=== PATIENT | female | born 1965 | race Caucasian/White ===

== ENCOUNTER 2020-01-25 16:05 | Emergency (ER) | payer MEDICARE, OTHER ==
--- NOTE | 2020-01-25 16:16 | ERPHSYRPT ---
- History of Present Illness Time Seen by Provider: 01/25/20 16:15 Source: patient Exam Limitations: no limitations Physician History: For the past 6 days pt has had a cough productive of smxqbe-ilvqd-[id number]-white- clear phlegm with an intermittent frontal headache; for the past 5 days a sore throat and ears that feel clogged; for the past 4 days wheezing; for the past 2 days hoarseness. Allergies/Adverse Reactions: amoxicillin [From Augmentin] Allergy (Verified 01/25/20 16:25) atorvastatin [From Lipitor] Allergy (Verified 01/25/20 16:25) ciprofloxacin [From Cipro] Allergy (Verified 01/25/20 16:25) clavulanic acid [From Augmentin] Allergy (Verified 01/25/20 16:25) cortisone Allergy (Verified 01/25/20 16:25) rosuvastatin [From Crestor] Allergy (Verified 01/25/20 16:25) Sulfa (Sulfonamide Antibiotics) Allergy (Verified 01/25/20 16:25) Tetanus Vaccines and Toxoid Allergy (Verified 01/25/20 16:25) ibuprofen Adverse Reaction (Verified 01/25/20 16:25) Travel Risk - International Travel Have you traveled outside of the country in past 3 weeks: No Have you or anyone close to you been diagnosed with or: No Do your reside in a community with a known COVID-19 case?: Yes If Yes where:: [place] - Coronavirus Screening Has patient experienced Coronavirus symptoms: Yes Symptoms experienced: respiratory symptoms (i.e.Cought,shortness of breath) Date of respiratory symptoms onset:: 01/19/20 (cough) - Review of Systems Constitutional: No Fever Ears, Nose, & Throat: Throat Pain, Hoarse, Other (ears clogged ) Respiratory: Cough, Wheezing Neurological: Headache All Other Systems: Reviewed and Negative - Past Medical History Neurological History: Peripheral Neuropathy, Other Cardiac History: No Pertinent History Respiratory History: Bronchitis Endocrine Medical History: No Pertinent History Musculoskeletal History: Degenerative Disk Disease, Fibromyalgia, Osteoarthritis Other Medical History: Carpal tunnel in the R UE and L UE but worse in the L. Psoriatic OA, Degenerative OA - Nursing Vital Signs Nursing Vital Signs: Initial Vital Signs Temperature 97.6 F 01/25/20 16:13 Pulse Rate 78 01/25/20 16:13 Respiratory Rate 18 01/25/20 16:13 O2 Sat by Pulse Oximetry 93 L 01/25/20 16:13 Pain Scale Pain Intensity 0 - Physical Exam General Appearance: alert Eye Exam: PERRL/EOMI Ears, Nose, Throat Exam: TMs normal, moist mucous membranes, pharyngeal erythema (mild) Neck Exam: normal inspection Respiratory Exam: wheezing (mild expiratory wheezing over bases bilaterally.) Cardiovascular Exam: normal heart sounds Gastrointestinal/Abdomen Exam: soft, normal bowel sounds Back Exam: normal range of motion Extremity Exam: No pedal edema Neurologic Exam: alert, cooperative Skin Exam: warm, dry SpO2 Interpretation: normal SpO2: 93 O2 Delivery: Room Air - Course Nursing assessment & vital signs reviewed: Yes - Radiology Exams Chest X-ray Interpretation: Interpreted by me (no pneumonia) Ordered Tests: Active Orders 24 hr Category Date Time Status CHEST 2 VIEWS (PA AND LAT) Stat Exams 01/25/20 16:26 Taken CBC W DIFF Stat Lab 01/25/20 16:45 Completed CMP Stat Lab 01/25/20 16:45 Completed Respiratory Nebulizer STAT RT 01/25/20 16:57 Completed Respiratory Therapy Assessment DAILY RT 01/25/20 16:57 Active Medication Summary Discontinued Medications Generic Name Dose Route Start Last Admin Trade Name Freq PRN Reason Stop Dose Admin Albuterol Sulfate 2.5 mg 01/25/20 16:42 01/25/20 16:56 Proventil 2.5 Mg/3 Ml Neb IH 01/25/20 16:43 2.5 mg STAT ONE Administration Albuterol Sulfate Confirm 01/25/20 16:50 Proventil 2.5 Mg/3 Ml Neb Administered 01/25/20 16:51 Dose 2.5 mg IH .STK-MED ONE Ceftriaxone Sodium 1,000 mg 01/25/20 17:49 01/25/20 17:57 Rocephin 1000 Mg Inj IM 01/25/20 17:50 1,000 mg STAT ONE Administration Dexamethasone Sodium Phosphate 10 mg 01/25/20 17:48 01/25/20 17:57 Decadron 10mg Inj. IM 01/25/20 17:49 10 mg STAT ONE Administration Lab/Rad Data: Laboratory Result Diagrams 01/25/20 16:45 01/25/20 16:45 Laboratory Results 01/25/20 01/25/20 01/25/20 Range/Units 16:45 16:45 16:45 WBC 8.1 (4.0-10.5) K/mm3 RBC 5.12 (4.1-5.4) M/mm3 Hgb 14.1 (12.0-16.0) gm/dl Hct 42.8 (35-47) % MCV 83.6 (78-100) fl MCH 27.5 (26-32) pg MCHC 32.9 (32-36) g/dl RDW 16.9 H (11.5-14.0) % Plt Count 229 (150-450) K/mm3 MPV 9.2 (7.5-11.0) fl Gran % 47.3 (36.0-66.0) % Eos # (Auto) 0.20 (0-0.5) Absolute Lymphs (auto) 3.45 (1.0-4.6) Absolute Monos (auto) 0.59 (0.0-1.3) Lymphocytes % 42.8 (24.0-44.0) % Monocytes % 7.3 (0.0-12.0) % Eosinophils % 2.5 (0.00-5.0) % Basophils % 0.1 (0.0-0.4) % Absolute Granulocytes 3.82 (1.4-6.9) Basophils # 0.01 (0-0.4) Sodium 141 (137-145) mmol/L Potassium 3.6 (3.5-5.1) mmol/L Chloride 107 (98-107) mmol/L Carbon Dioxide 28 (22-30) mmol/L Anion Gap 9.8 (5-15) MEQ/L BUN 11 (7-17) mg/dL Creatinine 0.56 (0.52-1.04) mg/dL Estimated GFR > 60.0 ML/MIN Glucose 92 (74-106) mg/dL Calcium 9.3 (8.4-10.2) mg/dL Total Bilirubin 0.60 (0.2-1.3) mg/dL AST 26 (14-36) U/L ALT 26 (0-35) U/L Alkaline Phosphatase 99 (38-126) U/L Serum Total Protein 7.1 (6.3-8.2) g/dL Albumin 4.1 (3.5-5.0) g/dL Influenza Type A Ag NEGATIVE (NEGATIVE) Influenza Type B Ag NEGATIVE (NEGATIVE) RSV (PCR) NEGATIVE (Negative) Group A Strep Antibody NOT DETECTED (NEGATIVE) - Progress Progress: unchanged Progress Note: 01/25/20 17:47 pt states she has taken decadron shots before without problems. pt also states she has taken keflex before without problems. Antibiotics given: Yes Counseled pt/family regarding: lab results, rad results - Departure Departure Disposition: Home Clinical Impression: Bronchitis, Pharyngitis Condition: Stable Critical Care Time: No Referrals: ALEX MOORE MD [Primary Care Provider] - Instructions: Acute Bronchitis, Sore Throat, Adult (DC) Additional Instructions: Follow up with private doctor tomorrow. Prescriptions: Azithromycin 250 mg [Zithromax 250 MG TABLET] 250 mg PO ZPACK #6 tablet Benzonatate [Tessalon Perle] 200 mg PO TID PRN #30 capsule
[2020-01-25] MEDS ORDERED: PROVENTIL 2.5 MG/3 ML NEB IH ONE ×2 (16:42→16:50)
[2020-01-25 16:50] LABS: Absolute Neutrophil Ct (ANC) 3.82 (1.4-6.9); BASOPHIL % 0.1 % (0.0-0.4); Basophil (Absolute #) 0.01 (0-0.4); Eosinophil % 2.5 % (0.00-5.0); Hematocrit 42.8 % (35-47); Hemoglobin 14.1 gm/dl (12.0-16.0); Lymphocyte (Absolute #) 3.45 (1.0-4.6); Lymphocytes % 42.8 % (24.0-44.0); Mean Cell Volume 83.6 fl (78-100); Mean Corpuscular Hemoglobin 27.5 pg (26-32); Mean Corpuscular Hgb Concent. 32.9 g/dl (32-36); Mean Platelet Volume 9.2 fl (7.5-11.0); Monocyte (Absolute #) 0.59 (0.0-1.3); Monocytes % 7.3 % (0.0-12.0); Neutrophil % 47.3 % (36.0-66.0); Platelet Count 229 K/mm3 (150-450); Red Blood Count 5.12 M/mm3 (4.1-5.4); Red Cell Distribution Width 16.9 % (11.5-14.0); White Blood Count 8.1 K/mm3 (4.0-10.5)
[2020-01-25 17:09] LABS: ALBUMIN 4.1 g/dL (3.5-5.0); ALKALINE PHOSPHATASE 99 U/L (38-126); ANION GAP 9.8 MEQ/L (5-15); BLOOD UREA NITROGEN 11 mg/dL (7-17); CHLORIDE 107 mmol/L (98-107); Calcium 9.3 mg/dL (8.4-10.2); Carbon Dioxide 28 mmol/L (22-30); Creatinine 1 0.56 mg/dL (0.52-1.04); Glucose 92 mg/dL (74-106); Potassium 3.6 mmol/L (3.5-5.1); SGOT/AST 26 U/L (14-36); SGPT/ALT 26 U/L (0-35); SODIUM 141 mmol/L (137-145); Total Protein 7.1 g/dL (6.3-8.2)
[2020-01-25 17:19] LABS: INFLUENZA A NEGATIVE (NEGATIVE); INFLUENZA B NEGATIVE (NEGATIVE); RESPIRATORY SYNCTIAL VIRUS NEGATIVE (Negative)
[2020-01-25] MEDS ORDERED: DECADRON 10MG INJ. IM ONE (17:48)
[2020-01-25] MEDS ORDERED: Rocephin 1000 MG INJ IM ONE (17:49)
[2020-01-25] MEDS ORDERED: Rocephin 1000 MG INJ ONE (17:56)
[2020-01-25] MEDS ORDERED: DECADRON 10MG INJ. ONE (17:56)
[2020-01-25] MEDS ORDERED: XYLOCAINE 1% HCL 20 ML MDV ONE (17:56)
[2020-01-25 18:06] VITALS: BP 140/81; PULSE 89
[2020-01-25 18:08] VITALS: O2SAT 93
--- NOTE | 2020-01-26 08:50 | XRAY ---
Indication: Cough. Comparison: June 20, 2008. PA/lateral chest hyperinflated with chronic lung markings. No focal infiltrate, consolidation, or large effusion. Heart and mediastinal structures within normal limits. Bony thorax intact with mild degenerative changes. Impression: Nonacute chest with chronic features.
== END 2020-01-25 18:13 | disposition home or self-care (01) ==
LOC: ED 16:05
DX: J40 Bronchitis, not specified as acute or chronic (principal); J02.9 Acute pharyngitis, unspecified; R51 Headache; R49.0 Dysphonia; R05 Cough; R06.2 Wheezing; R06.02 Shortness of breath
CPT/HCPCS: 36415; 71046; 80053; 85025; 87631; 87651; 94640; 96372; 99284; J0696; J1100; J7609; A9270-GY

== ENCOUNTER 2020-11-01 13:34 | Emergency (ER) | payer MEDICARE, OTHER ==
[2020-11-01 13:49] VITALS: O2SAT 96
[2020-11-01] MEDS ORDERED: TORAdol 30 mg Injection IM ONE (13:49)
[2020-11-01] MEDS ORDERED: Decadron 4 MG INJ IM ONE (13:49)
[2020-11-01] MEDS ORDERED: Decadron 4 MG INJ ONE (14:01)
[2020-11-01] MEDS ORDERED: TORAdol 30 mg Injection ONE (14:01)
--- NOTE | 2020-11-01 14:17 | ERPHSYRPT ---
- History of Present Illness Time Seen by Provider: 11/01/20 14:13 Source: patient Exam Limitations: no limitations Patient Subjective Stated Complaint: back pain Triage Nursing Assessment: Patient brought back to ED via w/c and transferred self to bed. Patient A+O X3. Patient's skin pink, warm and dry. Patient complains of right sided back pain that goes down right leg constant, sharp pain 10/10. Patient denies injuring self. No visible injuries noted. Patient states the pain started one week ago. Physician History: Complaining of low back pain radiating to the right leg. Patient is 55-year-old female morbidly obese with history of osteoarthritis on lumbosacral spine started having a pain in her lower back on the right side radiating to the right lower extremity. Patient denies any bowel bladder disturbance. Patient has this problem off and on for long years. Patient denies any fall. Timing/Duration: week(s) Method of Injury: unknown Quality: dull Back Pain Location: lumbar spine Back Pain Radiation: lower legs Severity of Pain-Max: moderate Severity of Pain-Current: moderate Modifying Factors: Improves With: nothing Associated Symptoms: denies symptoms Allergies/Adverse Reactions: amoxicillin [From Augmentin] Allergy (Verified 11/01/20 13:43) atorvastatin [From Lipitor] Allergy (Verified 11/01/20 13:43) ciprofloxacin [From Cipro] Allergy (Verified 11/01/20 13:43) clavulanic acid [From Augmentin] Allergy (Verified 11/01/20 13:43) cortisone Allergy (Verified 11/01/20 13:43) rosuvastatin [From Crestor] Allergy (Verified 11/01/20 13:43) Sulfa (Sulfonamide Antibiotics) Allergy (Verified 11/01/20 13:43) Tetanus Vaccines and Toxoid Allergy (Verified 11/01/20 13:43) ibuprofen Adverse Reaction (Verified 11/01/20 13:43) Hx Influenza Vaccination/Date Given: Yes Hx Pneumococcal Vaccination/Date Given: No Immunizations Up to Date: Yes Travel Risk - International Travel Have you traveled outside of the country in past 3 weeks: No - Coronavirus Screening Are you exhibiting any of the following symptoms?: No Close contact with a COVID-19 positive Pt in past 14-21 Days: No - Review of Systems Constitutional: No Symptoms Eyes: No Symptoms Ears, Nose, & Throat: No Symptoms Respiratory: No Symptoms Cardiac: No Symptoms Abdominal/Gastrointestinal: No Symptoms Genitourinary Symptoms: No Symptoms Musculoskeletal: Back Pain - Past Medical History Pertinent Past Medical History: Yes Neurological History: Peripheral Neuropathy, Other ENT History: No Pertinent History Cardiac History: No Pertinent History Respiratory History: Bronchitis Endocrine Medical History: No Pertinent History Musculoskeletal History: Degenerative Disk Disease, Fibromyalgia, Osteoarthritis GI Medical History: No Pertinent History History: No Pertinent History Psycho-Social History: No Pertinent History Female Reproductive Disorders: No Pertinent History Other Medical History: Carpal tunnel in the R UE and L UE but worse in the L. Psoriatic OA, Degenerative OA - Past Surgical History Past Surgical History: Yes Neuro Surgical History: No Pertinent History Cardiac: No Pertinent History Respiratory: No Pertinent History Gastrointestinal: No Pertinent History Genitourinary: No Pertinent History Musculoskeletal: Orthopedic Surgery Female Surgical History: Tubal Ligation Other Surgical History: Right shoulder X 2, Nasal surgery X 8 - Social History Smoking Status: Current every day smoker How long have you smoked: years Exposure to second hand smoke: Yes Drug Use: none Patient Lives Alone: No - Female History Hx Now: No - Nursing Vital Signs Nursing Vital Signs: Initial Vital Signs Temperature 98.0 F 11/01/20 13:44 Pulse Rate 89 11/01/20 13:44 Respiratory Rate 18 11/01/20 13:44 Blood Pressure 178/107 11/01/20 13:44 O2 Sat by Pulse Oximetry 96 11/01/20 13:44 Pain Scale Pain Intensity 10 - Physical Exam General Appearance: no apparent distress Eye Exam: PERRL/EOMI Ears, Nose, Throat Exam: normal ENT inspection Neck Exam: normal inspection Respiratory Exam: normal breath sounds Cardiovascular Exam: regular rate/rhythm Gastrointestinal Exam: soft Pelvic Exam: not done Rectal Exam: deferred Back Exam: decreased range of motion, muscle spasm, No CVA tenderness, No vert ebral tenderness, No point tenderness Extremity Exam: normal inspection, pelvis stable Neurologic Exam: alert, oriented x 3, cooperative, nml station & gait Skin Exam: normal color Lymphatic Exam: No adenopathy SpO2 Interpretation: normal SpO2: 96 O2 Delivery: Room Air - Course Nursing assessment & vital signs reviewed: Yes - Radiology Exams L-Spine X-ray Interpretation: Reviewed by me (osteoarthritis changes), Negative Ordered Tests: Active Orders 24 hr Category Date Time Status LUMBAR LIMITED (2 OR 3 VIEWS) Stat Exams 11/01/20 13:49 Taken Medication Summary Discontinued Medications Generic Name Dose Route Start Last Admin Trade Name Chelsey PRN Reason Stop Dose Admin Dexamethasone Sodium Phosphate 4 mg 11/01/20 13:49 11/01/20 14:02 Decadron 4 Mg Inj IM 11/01/20 13:50 4 mg STAT ONE Administration Dexamethasone Sodium Phosphate Confirm 11/01/20 14:01 Decadron 4 Mg Inj Administered 11/01/20 14:02 Dose 4 mg .ROUTE .STK-MED ONE Ketorolac Tromethamine 60 mg 11/01/20 13:49 11/01/20 14:03 Toradol 30 Mg Injection IM 11/01/20 13:50 60 mg STAT ONE Administration Ketorolac Tromethamine Confirm 11/01/20 14:01 Toradol 30 Mg Injection Administered 11/01/20 14:02 Dose 60 mg .ROUTE .STK-MED ONE - Progress Progress: improved, pain not gone completely Counseled pt/family regarding: diagnosis, need for follow-up, rad results - Departure Departure Disposition: Home Clinical Impression: Right-sided low back pain with sciatica Qualifiers: Chronicity: chronic Sciatica laterality: sciatica of right side Qualified Code(s): M54.41 - Lumbago with sciatica, right side; G89.29 - Other chronic pain Condition: Stable Critical Care Time: No Referrals: JUSTYN TERRELL Jr., MD [Primary Care Provider] - Instructions: Low Back Pain (DC), Sciatica (DC) Additional Instructions: Discharge/Care Plan [email or web address] EBONI was seen on 11/01/20 in the Emergency Room. The patient was counseled regarding Diagnosis,Lab results, Imaging studies, need for follow up and when to return to the Emergency Room. Prescriptions given: Discharge Note I have spoken with the patient and/or caregivers. I have explained the patient's condition, diagnosis and treatment plan based on the information available to me at this time. I have answered the patient's and/or caregiver's questions and addressed any concerns. The patient and/or caregivers have as good understanding of the patient's diagnosis, condition and treatment plan as can be expected at this point. The vital signs have been stable. The patient's condition is stable and appropriate for discharge from the emergency department. The patient will pursue further outpatient evaluation with the primary care physician or other designated or consulting physician as outlined in the discharge instructions. The patient and/or caregivers are agreeable to this plan of care and follow-up instructions have been explained in detail. The patient and/or caregivers have received these instruction. The patient/and or caregivers are aware that any significant change in condition or worsening of symptoms should prompt an immediate return to this or the closest emergency department or call 911. CHERYL SEGURA was seen on 11/01/20 n the Emergency Room. At that time you were treated for an emergent condition, during your visit Laboratory, Radiology and/or other procedures may have been ordered. It is very important that you follow-up with your Primary Care Physician JUSTYN TERRELL Jr., MD within the next 24-48 hours to review your Emergency Room visit and the final results of testing that was ordered. Some test results such as Urine Cultures, Blood Cultures, and other cultures if ordered will not be finalized for 24-48 hours. If you do not have a Primary Care Provider please call the medical records department at [phone] ext [phone] to obtain a copy of your results or you may sign into our patient portal to obtain these results by visiting us @ [email or web address] and completing the following steps: 1. Click on the Patient Portal link 2. Click the Patient Self Enrollment Link to complete the enrollment form and entering your 3. Once the enrollment form is completed you will receive an email with a temporary ID and password at the email address you provided. 4. Next choose a user name and password. Your user name must be at least 4 characters long and your password must be at least 4 characters long. 5. Choose a security question from the list and provide your answer to the question. If you already have signed into the Health Portal you may access your Health Care Information 24/05 by the following steps: 1. Login to our website @ [email or web address] 2. Enter your original user name and password. FAQS The [facility] Portal is an online tool that contains your Lab Results, Radiology Reports, Visit History, Discharge Instructions and Health Summary Lab and Radiology Results will not be available for 72 hours on the portal. The Portal is a secure site, passwords are encryted and URLs are re-written so they cannot be copied and pasted. You and authorized family members are the only ones who can access your Portal. Also there is a timeout feature that protects your information if you leave the Portal page open. If you have technical difficulty please use the Contact Us link on the page this will allow you to submit any questions you have regarding the Portal or you may contact the Medical Record Department at [phone] ext [phone]. Prescriptions: Nabumetone [Relafen] 500 mg PO BID #20 tablet
[2020-11-01 14:27] VITALS: BP 167/90; PULSE 78
--- NOTE | 2020-11-01 18:06 | XRAY ---
Indication: Low back pain. Right sciatica. Comparison: None 3 view lumbar spine demonstrates 5 lumbar segments with minimal/mild multilevel thoracolumbar endplate spurring, moderate bilateral L4-S1 degenerative facet hypertrophy, and scattered aortic calcifications. No other bony, articular, or soft tissue abnormalities.
== END 2020-11-01 14:48 | disposition home or self-care (01) ==
LOC: ED 13:34
DX: M54.41 Lumbago with sciatica, right side (principal); G89.29 Other chronic pain; M51.37 Other intervertebral disc degeneration, lumbosacral region; M19.90 Unspecified osteoarthritis, unspecified site
CPT/HCPCS: 72100; 96372; 99284; J1100; J1885

== ENCOUNTER 2021-03-26 14:56 | Day surgery (SDC) | payer OTHER ==
[2021-03-26] MEDS ORDERED: Xylocaine 1% Vial 30 ML PF IJ ONE (14:57)
[2021-03-26] MEDS ORDERED: Depo-Medrol 40 MG/ML IM ONE (14:57)
[2021-03-26] MEDS ORDERED: BUPIVACAINE 0.5% VIAL IJ ONE (14:57)
--- NOTE | 2021-03-26 17:49 | XRAY ---
21 seconds of fluoroscopy was used in surgery for a right SI injection.
--- NOTE | 2021-03-26 17:49 | XRAY ---
Indication: Right SI joint injection. Intraoperative fluoroscopy provided for 21 seconds. 2 digital spot images submitted for interpretation demonstrates posterior needle tip projecting over the inferior right SI joint. Correlate with intraoperative findings/report.
== END 2021-03-26 17:46 | disposition home or self-care (01) ==
LOC: SDC-PAIN 14:56
PROVIDERS: ATTEND Psychiatry & Neurology Pain Medicine
DX: M46.1 Sacroiliitis, not elsewhere classified (principal); F41.9 Anxiety disorder, unspecified; M19.90 Unspecified osteoarthritis, unspecified site; M79.7 Fibromyalgia; Z79.899 Other long term (current) drug therapy
CPT/HCPCS: 27096; 72020; 77002; G0260; J1030; J2001

== ENCOUNTER 2021-04-16 15:19 | Day surgery (SDC) | payer OTHER ==
[2021-04-16] MEDS ORDERED: BUPIVACAINE 0.5% VIAL IJ ONE (15:20)
[2021-04-16] MEDS ORDERED: Xylocaine 1% Vial 30 ML PF IJ ONE (15:20)
[2021-04-16] MEDS ORDERED: Depo-Medrol 40 MG/ML IM ONE (15:20)
--- NOTE | 2021-04-16 17:36 | XRAY ---
28 seconds of fluoroscopy was used in surgery for a right intra-articular hip injection.
--- NOTE | 2021-04-16 17:46 | XRAY ---
Indication: Right hip injection. Intraoperative fluoroscopy provided for 28 seconds. Single digital spot images submitted for interpretation demonstrates needle tip just lateral to the right femur neck. Small amount of contrast injected for needle tip placement. Correlate with intraoperative findings/report.
== END 2021-04-16 17:08 | disposition home or self-care (01) ==
LOC: SDC-PAIN 15:19
PROVIDERS: ATTEND Psychiatry & Neurology Pain Medicine
DX: M16.11 Unilateral primary osteoarthritis, right hip (principal); F41.9 Anxiety disorder, unspecified; L40.50 Arthropathic psoriasis, unspecified; Z79.899 Other long term (current) drug therapy
CPT/HCPCS: 20610; 73501; 77002; J1030; J2001; Q9966

== ENCOUNTER 2021-04-30 16:57 | Day surgery (SDC) | payer OTHER ==
[2021-04-30] MEDS ORDERED: Xylocaine 1% Vial 30 ML PF IJ ONE (16:58)
[2021-04-30] MEDS ORDERED: Depo-Medrol 40 MG/ML IM ONE (16:58)
[2021-04-30] MEDS ORDERED: BUPIVACAINE 0.5% VIAL IJ ONE (16:58)
[2021-04-30] MEDS ORDERED: TORAdol 30 mg Injection ONE ×2 (18:56→18:58)
--- NOTE | 2021-04-30 20:11 | XRAY ---
Indication: Right hip injection. Intraoperative fluoroscopy provided for 11 seconds. Single digital spot image obtained prone submitted for interpretation demonstrates needle tip just lateral to the right femur neck. Small amount of contrast injected for needle tip placement. Correlate with intraoperative findings/report.
--- NOTE | 2021-04-30 20:11 | XRAY ---
11 seconds of fluoroscopy was used in surgery for a right intra-articular hip injection.
--- NOTE | 2021-05-01 08:42 | XRAY ---
17 seconds fluoroscopy time in surgery for injection of the right SI joint.
--- NOTE | 2021-05-02 09:42 | XRAY ---
Indication: Right SI joint injection. Intraoperative fluoroscopy provided for 17 seconds. Single lateral digital spot image submitted for interpretation demonstrates posterior needle tip projecting mid sacrum. Correlate with intraoperative findings/report.
== END 2021-04-30 19:10 | disposition home or self-care (01) ==
LOC: SDC-PAIN 16:57
PROVIDERS: ATTEND Psychiatry & Neurology Pain Medicine
DX: M16.11 Unilateral primary osteoarthritis, right hip (principal); M79.7 Fibromyalgia; M72.2 Plantar fascial fibromatosis; Z79.899 Other long term (current) drug therapy
CPT/HCPCS: 20610; 27096; 72020; 73501; 77002; G0260; J1030; J1885; J2001; Q9966

== ENCOUNTER 2021-05-21 14:14 | Day surgery (SDC) | payer OTHER ==
[2021-05-21] MEDS ORDERED: BUPIVACAINE 0.5% VIAL IJ ONE (14:15)
[2021-05-21] MEDS ORDERED: Xylocaine 1% Vial 30 ML PF IJ ONE (14:15)
[2021-05-21] MEDS ORDERED: Depo-Medrol 40 MG/ML IM ONE (14:15)
[2021-05-21] MEDS ORDERED: DIPRIVAN 200 MG/20 ML IV ONE (15:31)
[2021-05-21] MEDS ORDERED: Lactated Ringers 1,000 ML IV ONE (15:57)
--- NOTE | 2021-05-21 16:32 | XRAY ---
Indication: Right SI joint injection. Intraoperative fluoroscopy provided for 30 seconds. 2 digital spot image submitted for interpretation demonstrates 4 posterior needle tips projecting over the right sacrum. Correlate with intraoperative findings/report.
--- NOTE | 2021-05-21 16:35 | XRAY ---
13 seconds fluoroscopy time in surgery for intra-articular injection of the right hip.
--- NOTE | 2021-05-21 16:35 | XRAY ---
30 seconds fluoroscopy time in surgery for RFA of the right SI joint.
--- NOTE | 2021-05-21 16:36 | XRAY ---
Indication: Right hip injection. Intraoperative fluoroscopy provided for 13 seconds. Single digital spot image obtained prone demonstrates needle tip projecting just lateral to the right femur neck. Small amount of contrast injected for needle tip placement. Correlate with intraoperative findings/report.
== END 2021-05-21 16:08 | disposition home or self-care (01) ==
LOC: SDC-PAIN 14:14
PROVIDERS: ATTEND Psychiatry & Neurology Pain Medicine
DX: M47.816 Spondylosis without myelopathy or radiculopathy, lumbar region (principal); Z79.899 Other long term (current) drug therapy
CPT/HCPCS: 20610; 64625; 72202; 73501; 77002; J1030; J2001; J2704; Q9966

== ENCOUNTER 2021-06-08 09:59 | Emergency (ER) | payer OTHER ==
[2021-06-08 10:21] VITALS: O2SAT 97
[2021-06-08] MEDS ORDERED: TORAdol 30 mg Injection IM ONE (10:36)
[2021-06-08] MEDS ORDERED: Norflex 60 MG/2 ML IM ONE (10:36)
[2021-06-08] MEDS ORDERED: TORAdol 30 mg Injection ONE (10:54)
[2021-06-08] MEDS ORDERED: Norflex 60 MG/2 ML ONE (10:54)
--- NOTE | 2021-06-08 10:57 | ERPHSYRPT ---
- History of Present Illness Time Seen by Provider: 06/08/21 10:03 Source: patient Exam Limitations: no limitations Patient Subjective Stated Complaint: RIGHT LEG PAIN Triage Nursing Assessment: PATIENT ALERT AND ORIENTED, NEURO CHECKS WNL BESIDES RADIATING PAIN TO RIGHT LEG, WHEEZES NOTED IN LUNG SOUNDS, PULSES INTACT, HEART SOUNDS WNL, SKIN IN TACT, BOWEL SOUNDS PRESENT. Physician History: 56 years old morbidly obese female with history of chronic back pain/sciatica on the right side on pain management presented in the ER after she fell off of morpid and hit her right hip against it 5 days ago. Since then she is having constant sharp shooting pain right sacroiliac area with radiation to right upper posterior thigh, severe intensity, limiting her mobility although she can walk with a cane barely. She does use cane normally for ambulation. She does have bilateral lower extremity neuropathy which is not any worse than usual. Denies any loss of bowel or bladder control. Timing/Duration: day(s) (6), constant, sudden, worse Method of Injury: fall Quality: sharp Back Pain Location: lumbar spine, paraspinous muscles Back Pain Radiation: buttocks, upper legs Severity of Pain-Max: severe Severity of Pain-Current: severe Modifying Factors: Improves With: pain medication, rest. Worsens With: movement Associated Symptoms: lower back pain, muscle spasms, No fever, No chills, No sw eating, No urinary incontinence, No loss of bowel control, No constipation, No nausea, No vomiting, No problems urinating, No light-headedness, No numbness in legs/feet, No weakness, No sensory/motor loss, No tingling in legs/feet Previous symptoms: same symptoms as today Allergies/Adverse Reactions: amoxicillin [From Augmentin] Allergy (Verified 06/08/21 10:34) atorvastatin [From Lipitor] Allergy (Verified 06/08/21 10:34) ciprofloxacin [From Cipro] Allergy (Verified 06/08/21 10:34) clavulanic acid [From Augmentin] Allergy (Verified 06/08/21 10:34) cortisone Allergy (Verified 06/08/21 10:34) rosuvastatin [From Crestor] Allergy (Verified 06/08/21 10:34) Sulfa (Sulfonamide Antibiotics) Allergy (Verified 06/08/21 10:34) Tetanus Vaccines and Toxoid Allergy (Verified 06/08/21 10:34) ibuprofen Adverse Reaction (Verified 06/08/21 10:34) Hx Tetanus, Diphtheria Vaccination/Date Given: No Hx Influenza Vaccination/Date Given: Yes Hx Pneumococcal Vaccination/Date Given: No Travel Risk - International Travel Have you traveled outside of the country in past 3 weeks: No - Coronavirus Screening Are you exhibiting any of the following symptoms?: No Close contact with a COVID-19 positive Pt in past 14-21 Days: No - Vaccine Status Have you recieved a Covid-19 vaccination: Yes Coil Inspector: Moderna - Vaccination Dates Date of 2cond Vaccination (if applicable): December 2020 - Review of Systems Constitutional: No Symptoms Eyes: No Symptoms Respiratory: No Symptoms Cardiac: No Symptoms Abdominal/Gastrointestinal: No Symptoms Genitourinary Symptoms: No Symptoms Musculoskeletal: Back Pain Skin: No Symptoms Neurological: No Symptoms Psychological: No Symptoms Endocrine: No Symptoms Hematologic/Lymphatic: No Symptoms Immunological/Allergic: No Symptoms - Past Medical History Pertinent Past Medical History: Yes Neurological History: Peripheral Neuropathy, Other ENT History: No Pertinent History Cardiac History: No Pertinent History Respiratory History: Bronchitis Endocrine Medical History: No Pertinent History Musculoskeletal History: Degenerative Disk Disease, Fibromyalgia, Osteoarthritis GI Medical History: No Pertinent History History: No Pertinent History Psycho-Social History: No Pertinent History Female Reproductive Disorders: No Pertinent History Other Medical History: Carpal tunnel in the R UE and L UE but worse in the L. Psoriatic OA, Degenerative OA - Past Surgical History Past Surgical History: Yes Neuro Surgical History: No Pertinent History Cardiac: No Pertinent History Respiratory: No Pertinent History Gastrointestinal: No Pertinent History Genitourinary: No Pertinent History Musculoskeletal: Orthopedic Surgery Female Surgical History: Tubal Ligation Other Surgical History: Right shoulder X 2, Nasal surgery X 8 - Social History Smoking Status: Current every day smoker How long have you smoked: years Exposure to second hand smoke: Yes Drug Use: none Patient Lives Alone: No - Female History Hx Now: No - Nursing Vital Signs Nursing Vital Signs: Initial Vital Signs Pulse Rate 81 06/08/21 09:59 Respiratory Rate 20 06/08/21 09:59 Blood Pressure 149/86 06/08/21 09:59 O2 Sat by Pulse Oximetry 97 06/08/21 09:59 Pain Scale Pain Intensity 10 - Physical Exam General Appearance: no apparent distress, alert, anxiety Ears, Nose, Throat Exam: normal ENT inspection, TMs normal, pharynx normal, moist mucous membranes Neck Exam: normal inspection, non-tender, full range of motion Respiratory Exam: normal breath sounds, lungs clear Cardiovascular Exam: regular rate/rhythm, normal heart sounds Gastrointestinal Exam: soft, normal bowel sounds, No tenderness Back Exam: vertebral tenderness (lumbar), decreased range of motion, muscle spasm, point tenderness (left SI), other (bilateral decreased sensations of touch in feet.), No CVA tenderness Extremity Exam: normal inspection, normal range of motion, pelvis stable Neurologic Exam: alert, oriented x 3, cooperative Skin Exam: normal color SpO2 Interpretation: normal SpO2: 97 O2 Delivery: Room Air Ordered Tests: Active Orders 24 hr Category Date Time Status LUMBAR SPINE W/O [CT] Stat Exams 06/08/21 11:38 Taken PELVIS WITHOUT CONTRAST [CT] Stat Exams 06/08/21 11:41 Taken Medication Summary Discontinued Medications Generic Name Dose Route Start Last Admin Trade Name Freq PRN Reason Stop Dose Admin Ketorolac Tromethamine 30 mg 06/08/21 10:36 06/08/21 10:58 Toradol 30 Mg Injection IM 06/08/21 10:37 30 mg STAT ONE Administration Ketorolac Tromethamine Confirm 06/08/21 10:54 Toradol 30 Mg Injection Administered 06/08/21 10:55 Dose 30 mg .ROUTE .STK-MED ONE Orphenadrine Citrate 60 mg 06/08/21 10:36 06/08/21 10:57 Norflex 60 Mg/2 Ml IM 06/08/21 10:37 60 mg STAT ONE Administration Orphenadrine Citrate Confirm 06/08/21 10:54 Norflex 60 Mg/2 Ml Administered 06/08/21 10:55 Dose 60 mg .ROUTE .STK-MED ONE - Progress Progress: improved, pain not gone completely, re-examined Progress Note: 06/08/21 12:44 56 years old is evaluated for worsening with radiation to right lower extremity. She has no significant midline tenderness. Does have chronic L4-L5 area pain. I have obtained CT lumbar spine and pelvis without any acute trauma related findings. She is given symptomatic treatment for pain, on reevaluation feeling better and was able to go to the bathroom. She is advised to continue with [place]/gabapentin and will add Robaxin. I believe patient has acute on chronic low back pain exacerbation with some element of strain. Negative neuro exam lower extremities for cauda equina. Recommended pain management follow-up. Discussed signs symptoms of worsening needing return to ER which she seems understanding. Stable for discharge. Counseled pt/family regarding: diagnosis, need for follow-up, rad results - Departure Departure Disposition: Home Clinical Impression: Right-sided low back pain with sciatica Qualifiers: Chronicity: acute Sciatica laterality: sciatica of right side Qualified Code(s): M54.41 - Lumbago with sciatica, right side Condition: Stable Critical Care Time: No Referrals: JUSTYN TERRELL Jr., MD [Primary Care Provider] - (1-2 days for reevaluation) EZEKIEL LANE MD [CONSULTING PHYSICIAN] - (Call tomorrow for reevaluation) Instructions: Low Back Pain (DC), Sciatica (DC) Additional Instructions: Avoid exertional activities. Use cane all the time for ambulation. Continue with your current pain medication and take muscle relaxants as needed. Follow- up with pain management/primary care for reevaluation early next week. Return to ER for intractable pain, numbness tingling weakness of lower extremities/loss of bowel or bladder control. Prescriptions: Methocarbamol 500 mg [Robaxin 500 MG] 500 mg PO Q6HPRN PRN 7 Days #20 tablet PRN Reason: Pain
[2021-06-08 11:05] VITALS: BP 147/72; PULSE 88
--- NOTE | 2021-06-08 21:31 | XRAY ---
Indication: Right low back pain/sciatica following fall June 02, 2021. Multiple contiguous axial images obtained through the lumbar spine. Sagittal and coronal reformatted images obtained. Comparison: August 24, 2006. Axial images negative for acute fracture, suspicious bony lesions, or spinal canal stenosis. There is now broad-based disc bulge at L4-S1 levels. Also worsening moderate/advanced bilateral L4-S1 degenerative facet arthropathy. Sagittal and coronal reformatted images again demonstrates normal alignment with vertebral body height/disc space is maintained. No acute compression fracture or subluxation. Visualized noncontrasted soft tissues again demonstrates right renal cyst incompletely visualized at least 6 cm in diameter. This was previously 3.5 cm. Also new nonobstructing right renal micro-calculi and mild aortoiliac calcifications. Impression: 1. L4-S1 degenerative disc disease better evaluated with outpatient MRI. 2. Enlarging right renal cyst and new nonobstructing right renal micro-calculi. Comment: Preliminary interpretation made by C. No critical discrepancy.
--- NOTE | 2021-06-08 21:33 | XRAY ---
Indication: Right low back pain/sciatica and right pelvis pain following fall June 02, 2021. Multiple contiguous axial images obtained through the pelvis. Sagittal and coronal reformatted images obtained. Comparison: August 24, 2006. No acute fracture, dislocation, suspicious bone lesions. Lumbar degenerative changes reported separately. Visualized soft tissues are unremarkable. Impression: Negative CT pelvis. Comment: Preliminary interpretation made by [facility]. No critical discrepancy.
== END 2021-06-08 12:55 | disposition home or self-care (01) ==
LOC: ED 09:59
DX: M54.41 Lumbago with sciatica, right side (principal)
CPT/HCPCS: 72131; 72192; 96372; 99284; J1885; J2360

== ENCOUNTER 2021-06-11 14:48 | Emergency (ER) | payer OTHER ==
[2021-06-11] MEDS ORDERED: TORAdol 30 mg Injection IM ONE (15:06)
[2021-06-11] MEDS ORDERED: solu-MEDROL 125 MG, Sterile H2O 10 ml 2 ML IM ONE ×2 (15:06)
--- NOTE | 2021-06-11 15:06 | ERPHSYRPT ---
- History of Present Illness Time Seen by Provider: 06/11/21 15:02 Source: patient Exam Limitations: no limitations Patient Subjective Stated Complaint: Pt continues to have right sided sciatica pain Triage Nursing Assessment: Pt brought in to the ER by her , hypertensive, rates pain as 10/10, pulses normal, complaining that she didn't get a steroid shot on Wednesday at this ER, right sided [place] pain that radiates down to her toes, couldn't get into the pain clinic and they told her to come here, skin n/w/d, laying on the left side Physician History: Javier is a 56-year-old white female a patient of the pain clinic who presented to the emergency room last Wednesday with a complaint of back pain. She was treated with Toradol and Norflex she says that has not been beneficial. She attempted to get into the pain clinic today but was told it will be next Wednesday before they can do an epidural injection. She did during that visit have a CT of the lumbar spine and CT of the pelvis which showed a bulging disc at L4 S1. She request a steroid injection. Timing/Duration: constant, worse Method of Injury: unknown Quality: radiating, sharp, throbbing Back Pain Location: lumbar spine Back Pain Radiation: buttocks Severity of Pain-Max: severe Severity of Pain-Current: severe Modifying Factors: Improves With: movement Associated Symptoms: lower back pain Previous symptoms: same symptoms as today Allergies/Adverse Reactions: amoxicillin [From Augmentin] Allergy (Verified 06/08/21 10:34) atorvastatin [From Lipitor] Allergy (Verified 06/08/21 10:34) ciprofloxacin [From Cipro] Allergy (Verified 06/08/21 10:34) clavulanic acid [From Augmentin] Allergy (Verified 06/08/21 10:34) cortisone Allergy (Verified 06/08/21 10:34) rosuvastatin [From Crestor] Allergy (Verified 06/08/21 10:34) Sulfa (Sulfonamide Antibiotics) Allergy (Verified 06/08/21 10:34) Tetanus Vaccines and Toxoid Allergy (Verified 06/08/21 10:34) ibuprofen Adverse Reaction (Verified 06/08/21 10:34) Hx Tetanus, Diphtheria Vaccination/Date Given: No Hx Influenza Vaccination/Date Given: Yes Hx Pneumococcal Vaccination/Date Given: No Travel Risk - International Travel Have you traveled outside of the country in past 3 weeks: No - Coronavirus Screening Are you exhibiting any of the following symptoms?: No Close contact with a COVID-19 positive Pt in past 14-21 Days: No - Vaccine Status Have you recieved a Covid-19 vaccination: Yes Manager Benefit: Moderna - Vaccination Dates Date of 2cond Vaccination (if applicable): 01/02/2021 - Review of Systems Constitutional: No Fever, No Chills Eyes: No Symptoms Ears, Nose, & Throat: No Symptoms Respiratory: No Cough, No Dyspnea Cardiac: No Chest Pain, No Edema, No Syncope Abdominal/Gastrointestinal: No Abdominal Pain, No Nausea, No Vomiting, No Diarrhea Genitourinary Symptoms: No Dysuria Musculoskeletal: Back Pain, No Neck Pain Skin: No Rash Neurological: No Dizziness, No Focal Weakness, No Sensory Changes Psychological: No Symptoms Endocrine: No Symptoms All Other Systems: Reviewed and Negative - Past Medical History Pertinent Past Medical History: Yes Neurological History: Peripheral Neuropathy, Other ENT History: No Pertinent History Cardiac History: No Pertinent History Respiratory History: Bronchitis Endocrine Medical History: No Pertinent History Musculoskeletal History: Degenerative Disk Disease, Fibromyalgia, Osteoarthritis GI Medical History: No Pertinent History History: No Pertinent History Psycho-Social History: No Pertinent History Female Reproductive Disorders: No Pertinent History Other Medical History: Carpal tunnel in the R UE and L UE but worse in the L. Psoriatic OA, Degenerative OA - Past Surgical History Past Surgical History: Yes Neuro Surgical History: No Pertinent History Cardiac: No Pertinent History Respiratory: No Pertinent History Gastrointestinal: No Pertinent History Genitourinary: No Pertinent History Musculoskeletal: Orthopedic Surgery Female Surgical History: Tubal Ligation Other Surgical History: Right shoulder X 2, Nasal surgery X 8 - Social History Smoking Status: Current every day smoker How long have you smoked: years Exposure to second hand smoke: Yes Drug Use: none Patient Lives Alone: No - Female History Hx Now: No - Nursing Vital Signs Nursing Vital Signs: Initial Vital Signs Temperature 96.5 F 06/11/21 14:55 Pulse Rate 100 H 06/11/21 14:55 Blood Pressure 163/84 06/11/21 14:55 O2 Sat by Pulse Oximetry 97 06/11/21 14:55 Pain Scale Pain Intensity 10 - Physical Exam General Appearance: moderate distress, alert Eye Exam: PERRL/EOMI, eyes nml inspection Neck Exam: normal inspection, non-tender, supple, full range of motion, No meningismus, No midline tenderness Respiratory Exam: normal breath sounds, lungs clear, No respiratory distress Cardiovascular Exam: regular rate/rhythm, normal heart sounds Gastrointestinal Exam: soft, No tenderness, No mass Back Exam: vertebral tenderness, decreased range of motion, muscle spasm, point tenderness Extremity Exam: normal inspection, normal range of motion, No calf tenderness, No pedal edema Neurologic Exam: alert, oriented x 3, cooperative, php lamp developer II-XII nml as tested, normal mood/affect, nml station & gait, sensation nml, No motor deficits Skin Exam: normal color, warm, dry, No rash SpO2: 97 - Course Nursing assessment & vital signs reviewed: Yes - Progress Progress: unchanged - Departure Departure Disposition: Home Clinical Impression: Sciatica Condition: Stable Critical Care Time: No Referrals: JUSTYN TERRELL Jr., MD [Primary Care Provider] - Instructions: Sciatica (DC)
[2021-06-11] MEDS ORDERED: Sterile H2O 10 ml IJ ONE (15:09)
[2021-06-11] MEDS ORDERED: TORAdol 30 mg Injection ONE (15:09)
[2021-06-11] MEDS ORDERED: solu-MEDROL ONE (15:09)
[2021-06-11 15:35] VITALS: BP 145/76; PULSE 83; O2SAT 92
== END 2021-06-11 15:42 | disposition home or self-care (01) ==
LOC: ED 14:48
DX: M54.30 Sciatica, unspecified side (principal); M51.26 Other intervertebral disc displacement, lumbar region; Z72.0 Tobacco use
CPT/HCPCS: 96372; 99283; J1885; J2930

== ENCOUNTER 2021-06-15 12:19 | Emergency (ER) | payer OTHER ==
[2021-06-15] MEDS ORDERED: solu-MEDROL 40 MG IM ONE (12:39)
[2021-06-15] MEDS ORDERED: TORAdol 30 mg Injection IM ONE (12:39)
--- NOTE | 2021-06-15 12:44 | ERPHSYRPT ---
- History of Present Illness Time Seen by Provider: 06/15/21 12:40 Source: patient Exam Limitations: no limitations Patient Subjective Stated Complaint: pt reports sciatic pain, pain that radiates from her lower right back all the down her right extremity, states she is [facility]. states this is her 3rd visit for the same issue and she hopes to be seen this wednesday by her provider to address the issue. Triage Nursing Assessment: pt is aox3, pupils perrl, afebrile, resps easy and non labored, cap refill < 3 seconds, radial pulses strong and equal, pt skin pink warm dry, pt sensation, ROM intact. Physician History: Patient is a 56-year-old white female with longstanding chronic low back pain she is seen at the pain center. She has been seen several times recently for exacerbation observation of her chronic pain and presents today once again with more back pain. She has had recent imaging. Timing/Duration: worse Quality: throbbing Back Pain Location: lumbar spine Severity of Pain-Max: moderate Severity of Pain-Current: moderate Modifying Factors: Improves With: nothing Associated Symptoms: No urinary incontinence, No loss of bowel control Previous symptoms: same symptoms as today Allergies/Adverse Reactions: amoxicillin [From Augmentin] Allergy (Verified 06/11/21 15:02) atorvastatin [From Lipitor] Allergy (Verified 06/11/21 15:02) ciprofloxacin [From Cipro] Allergy (Verified 06/11/21 15:02) clavulanic acid [From Augmentin] Allergy (Verified 06/11/21 15:02) cortisone Allergy (Verified 06/11/21 15:02) rosuvastatin [From Crestor] Allergy (Verified 06/11/21 15:02) Sulfa (Sulfonamide Antibiotics) Allergy (Verified 06/11/21 15:02) Tetanus Vaccines and Toxoid Allergy (Verified 06/11/21 15:02) ibuprofen Adverse Reaction (Verified 06/11/21 15:02) Home Medications: Albuterol Sulfate [Albuterol Sulfate Hfa] 1 inh PO UD 06/11/21 [History] Calcium Citrate/Vitamin D3 [Calcium Citrate - Vit D Tablet] 2 tab PO BID 06/11/21 [History] Fexofenadine HCl [Allergy Relief] 180 mg PO DAILY 06/11/21 [History] Gabapentin 800 mg PO QID 06/11/21 [History] Hydrocodone/Acetaminophen [Hydrocodone-Acetamin 7.5-325] 1 tab PO Q6H 06/11/21 [History] PANTOPRAZOLE 40 mg Tablet [Protonix 40MG Tablet] 40 mg PO BID 06/11/21 [History] Simvastatin 40 mg PO DAILY 06/11/21 [History] Ustekinumab [Stelara] 90 mg SQ UD 06/11/21 [History] guaiFENesin [Guaifenesin] 1,200 mg PO BID 06/11/21 [History] Hx Tetanus, Diphtheria Vaccination/Date Given: Yes Hx Influenza Vaccination/Date Given: No Hx Pneumococcal Vaccination/Date Given: No Immunizations Up to Date: Yes Travel Risk - International Travel Have you traveled outside of the country in past 3 weeks: No - Coronavirus Screening Are you exhibiting any of the following symptoms?: No Close contact with a COVID-19 positive Pt in past 14-21 Days: No - Vaccine Status Have you recieved a Covid-19 vaccination: Yes Pipe Changer: Unknown - Vaccination Dates Date of 2cond Vaccination (if applicable): 01/02/2021 Dates if Unknown: 11/01/00 - Review of Systems Constitutional: No Fever, No Chills Eyes: No Symptoms Ears, Nose, & Throat: No Symptoms Respiratory: No Cough, No Dyspnea Cardiac: No Chest Pain, No Edema, No Syncope Abdominal/Gastrointestinal: No Abdominal Pain, No Nausea, No Vomiting, No Diarrhea Genitourinary Symptoms: No Dysuria Musculoskeletal: Back Pain, No Neck Pain Skin: No Rash Neurological: No Dizziness, No Focal Weakness, No Sensory Changes Psychological: No Symptoms Endocrine: No Symptoms All Other Systems: Reviewed and Negative - Past Medical History Pertinent Past Medical History: Yes Neurological History: Peripheral Neuropathy, Other ENT History: No Pertinent History Cardiac History: No Pertinent History Respiratory History: Bronchitis Endocrine Medical History: No Pertinent History Musculoskeletal History: Degenerative Disk Disease, Fibromyalgia, Osteoarthritis GI Medical History: No Pertinent History History: No Pertinent History Psycho-Social History: No Pertinent History Female Reproductive Disorders: No Pertinent History Other Medical History: Carpal tunnel in the R UE and L UE but worse in the L. Psoriatic OA, Degenerative OA - Past Surgical History Past Surgical History: Yes Neuro Surgical History: No Pertinent History Cardiac: No Pertinent History Respiratory: No Pertinent History Gastrointestinal: No Pertinent History Genitourinary: No Pertinent History Musculoskeletal: Orthopedic Surgery Female Surgical History: Tubal Ligation Other Surgical History: Right shoulder X 2, Nasal surgery X 8 - Social History Smoking Status: Current every day smoker How long have you smoked: years Exposure to second hand smoke: Yes Drug Use: none Patient Lives Alone: No - Female History Hx Now: No - Nursing Vital Signs Nursing Vital Signs: Initial Vital Signs Temperature 97.8 F 06/15/21 12:23 Pulse Rate 77 06/15/21 12:23 Respiratory Rate 18 06/15/21 12:23 Blood Pressure 200/105 06/15/21 12:23 O2 Sat by Pulse Oximetry 98 06/15/21 12:23 Pain Scale Pain Intensity 8 - Physical Exam General Appearance: no apparent distress, alert Eye Exam: PERRL/EOMI, eyes nml inspection Neck Exam: normal inspection, non-tender, supple, full range of motion, No meningismus, No midline tenderness Respiratory Exam: normal breath sounds, lungs clear, No respiratory distress Cardiovascular Exam: regular rate/rhythm, normal heart sounds Gastrointestinal Exam: soft, No tenderness, No mass Back Exam: vertebral tenderness, decreased range of motion, point tenderness Extremity Exam: normal inspection, normal range of motion, No calf tenderness, No pedal edema Neurologic Exam: alert, oriented x 3, cooperative, 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
[2021-06-15] MEDS ORDERED: TORAdol 30 mg Injection ONE (13:09)
[2021-06-15] MEDS ORDERED: Sterile H2O 10 ml IJ ONE (13:09)
[2021-06-15] MEDS ORDERED: solu-MEDROL ONE (13:09)
[2021-06-15 13:37] VITALS: BP 176/106; PULSE 90; O2SAT 97
== END 2021-06-15 13:37 | disposition home or self-care (01) ==
LOC: ED 12:19
DX: M54.40 Lumbago with sciatica, unspecified side (principal); Z79.899 Other long term (current) drug therapy
CPT/HCPCS: 96372; 99283; J1885; J2920; J2930

== ENCOUNTER 2021-06-18 17:49 | Day surgery (SDC) | payer OTHER ==
[2021-06-18] MEDS ORDERED: Depo-Medrol 40 MG/ML IM ONE (17:50)
[2021-06-18] MEDS ORDERED: Xylocaine 1% Vial 30 ML PF IJ ONE (17:50)
[2021-06-18] MEDS ORDERED: Sodium Chloride 0.9(Preservative Free) 10 ML IJ ONE (17:50)
--- NOTE | 2021-06-19 09:17 | XRAY ---
Indication: Right L3-S1 transforaminal AVTAR. Intraoperative fluoroscopy provided for 36 seconds. 3 digital spot image submitted for interpretation demonstrates posterior needle tips projecting over the expected right L4 and L5 nerve roots. Small amount of contrast injected for needle tip placement. Correlate with intraoperative findings/report.
--- NOTE | 2021-06-19 15:50 | XRAY ---
36 seconds of fluoroscopy was used in surgery for a right L4-S1 transforaminal AVTAR.
== END 2021-06-18 19:38 | disposition home or self-care (01) ==
LOC: SDC-PAIN 17:49
PROVIDERS: ATTEND Psychiatry & Neurology Pain Medicine
DX: M54.16 Radiculopathy, lumbar region (principal); Z79.899 Other long term (current) drug therapy
CPT/HCPCS: 64483; 64484; 72100; 77003; J1030; J2001; Q9966

== ENCOUNTER 2021-07-23 11:04 | Day surgery (SDC) | payer OTHER ==
[2021-07-23] MEDS ORDERED: Xylocaine 1% Vial 30 ML PF IJ ONE (11:05)
[2021-07-23] MEDS ORDERED: BUPIVACAINE 0.5% VIAL IJ ONE (11:05)
[2021-07-23] MEDS ORDERED: Depo-Medrol 40 MG/ML IM ONE (11:05)
[2021-07-23] MEDS ORDERED: DIPRIVAN 200 MG/20 ML IV ONE (12:35)
[2021-07-23] MEDS ORDERED: Xylocaine-Mpf 2% 5 Ml Vial ONE (12:35)
[2021-07-23] MEDS ORDERED: Lactated Ringers 1,000 ML IV ONE (16:18)
--- NOTE | 2021-07-24 11:20 | XRAY ---
11 seconds fluoroscopy time in surgery for intra-articular injection of the right hip.
--- NOTE | 2021-07-26 22:48 | XRAY ---
Indication: Right hip injection. Intraoperative fluoroscopy was provided for 11 seconds. A single digital spot image submitted for interpretation demonstrates a needle tip at the lateral margin of the right femoral neck. A small amount of contrast has been injected for needle tip placement. Correlate with intraoperative findings/report.
== END 2021-07-23 13:02 | disposition home or self-care (01) ==
LOC: SDC-PAIN 11:04
PROVIDERS: ATTEND Psychiatry & Neurology Pain Medicine
DX: M16.11 Unilateral primary osteoarthritis, right hip (principal); Z79.899 Other long term (current) drug therapy
CPT/HCPCS: 20610; 73501; 77002; J1030; J2001; J2704; Q9966

== ENCOUNTER 2021-08-06 07:53 | Day surgery (SDC) | payer OTHER ==
[2021-08-06] MEDS ORDERED: LIDOCAINE HCL 2% 100 MG/5 ML IJ ONE (07:54)
[2021-08-06] MEDS ORDERED: Depo-Medrol 40 MG/ML IM ONE (07:54)
[2021-08-06] MEDS ORDERED: DIPRIVAN 200 MG/20 ML IV ONE (09:25)
--- NOTE | 2021-08-06 11:01 | XRAY ---
Indication: Bilateral L4-S1 MBB. Intraoperative fluoroscopy provided for 11 seconds. Single digital spot imags submitted for interpretation demonstrates posterior needle tips projecting over the expected left and right L4-S1 nerve roots. Correlate with intraoperative findings/report.
--- NOTE | 2021-08-06 11:40 | XRAY ---
11 seconds fluoroscopy time in surgery for bilateral L4-S1 MBB.
[2021-08-06] MEDS ORDERED: Lactated Ringers 1,000 ML IV ONE (15:18)
== END 2021-08-06 09:50 | disposition home or self-care (01) ==
LOC: SDC-PAIN 07:53
PROVIDERS: ATTEND Psychiatry & Neurology Pain Medicine
DX: M47.816 Spondylosis without myelopathy or radiculopathy, lumbar region (principal); Z79.899 Other long term (current) drug therapy
CPT/HCPCS: 64493; 64494; 72020; 77002; J1030; J2704

== ENCOUNTER 2021-09-10 14:18 | Day surgery (SDC) | payer OTHER ==
[2021-09-10] MEDS ORDERED: Depo-Medrol 40 MG/ML IM ONE (14:19)
[2021-09-10] MEDS ORDERED: BUPIVACAINE 0.5% VIAL IJ ONE (14:19)
[2021-09-10] MEDS ORDERED: Xylocaine 1% Vial 30 ML PF IJ ONE (14:19)
[2021-09-10] MEDS ORDERED: DIPRIVAN 200 MG/20 ML IV ONE (16:20)
[2021-09-10] MEDS ORDERED: Lactated Ringers 1,000 ML IV ONE (17:27)
--- NOTE | 2021-09-10 21:42 | XRAY ---
Indication: Right L4-S1 RFA. Intraoperative fluoroscopy provided for 21 seconds. 3 digital spot image submitted for interpretation demonstrates posterior needle tips projecting over the expected right L4-S1 nerve roots. Correlate with intraoperative findings/report.
--- NOTE | 2021-09-11 09:04 | XRAY ---
21 seconds fluoroscopy time in surgery for right L4-S1 RFA.
== END 2021-09-10 16:53 | disposition home or self-care (01) ==
LOC: SDC-PAIN 14:18
PROVIDERS: ATTEND Psychiatry & Neurology Pain Medicine
DX: M47.816 Spondylosis without myelopathy or radiculopathy, lumbar region (principal); F41.9 Anxiety disorder, unspecified; F32.9 Major depressive disorder, single episode, unspecified; M79.7 Fibromyalgia; Z79.899 Other long term (current) drug therapy
CPT/HCPCS: 63685; 64635; 64636; 72100; 77002; 93268; G0378; J1030; J2001; J2704

== ENCOUNTER 2021-09-17 10:41 | Day surgery (SDC) | payer OTHER ==
[2021-09-17] MEDS ORDERED: Depo-Medrol 40 MG/ML IM ONE (10:42)
[2021-09-17] MEDS ORDERED: Xylocaine 1% Vial 30 ML PF IJ ONE (10:42)
[2021-09-17] MEDS ORDERED: BUPIVACAINE 0.5% VIAL IJ ONE (10:42)
[2021-09-17] MEDS ORDERED: DIPRIVAN 200 MG/20 ML IV ONE (11:21)
[2021-09-17] MEDS ORDERED: Lactated Ringers 1,000 ML IV ONE (12:04)
--- NOTE | 2021-09-17 12:33 | XRAY ---
Indication: Left L4-S1 RFA. Intraoperative fluoroscopy provided for 35 seconds. 3 digital spot images submitted for interpretation demonstrates posterior needle tips projecting over the expected left L4-S1 nerve roots. Correlate with intraoperative findings/report.
--- NOTE | 2021-09-17 12:39 | XRAY ---
35 seconds fluoroscopy time in surgery for left L4-S1 RFA.
== END 2021-09-17 12:00 | disposition home or self-care (01) ==
LOC: SDC-PAIN 10:41
PROVIDERS: ATTEND Psychiatry & Neurology Pain Medicine
DX: M47.816 Spondylosis without myelopathy or radiculopathy, lumbar region (principal); Z79.891 Long term (current) use of opiate analgesic; Z72.0 Tobacco use
CPT/HCPCS: 64635; 64636; 72100; 77002; J1030; J2001; J2704

== ENCOUNTER 2021-10-16 13:25 | Day surgery (SDC) | payer OTHER ==
[2021-10-16] MEDS ORDERED: BUPIVACAINE 0.5% VIAL IJ ONE (13:26)
[2021-10-16] MEDS ORDERED: Depo-Medrol 40 MG/ML IM ONE (13:26)
[2021-10-16] MEDS ORDERED: Lactated Ringers 1,000 ML IV ONE (14:25)
[2021-10-16] MEDS ORDERED: DIPRIVAN 200 MG/20 ML IV ONE (14:32)
--- NOTE | 2021-10-16 16:37 | XRAY ---
Indication: Bilateral greater trochanter bursa injection. Intraoperative fluoroscopy provided for 29 seconds. 2 digital spot image submitted for interpretation demonstrates needle tip projecting lateral to the left and right greater trochanters. Small amount of contrast injected for both needle tip placement. Correlate with intraoperative findings/report.
--- NOTE | 2021-10-16 16:39 | XRAY ---
29 seconds fluoroscopy time in surgery for injection of the greater trochanter of both hips.
--- NOTE | 2021-10-16 16:47 | XRAY ---
Indication: Left SI joint injection. Intraoperative fluoroscopy provided for 12 seconds. 2 digital spot image submitted for interpretation demonstrates posterior needle tip projecting over the inferior left SI joint. Correlate with intraoperative findings/report.
--- NOTE | 2021-10-16 16:49 | XRAY ---
12 seconds fluoroscopy time in surgery for injection of the left SI joint.
== END 2021-10-16 15:00 | disposition home or self-care (01) ==
LOC: SDC-PAIN 13:25
PROVIDERS: ATTEND Psychiatry & Neurology Pain Medicine
DX: M46.1 Sacroiliitis, not elsewhere classified (principal); Z79.899 Other long term (current) drug therapy
CPT/HCPCS: 20610; 27096; 72020; 73521; 77002; G0260; J1030; J2704; Q9966

== ENCOUNTER 2021-11-12 12:25 | Day surgery (SDC) | payer OTHER ==
[2021-11-12] MEDS ORDERED: BUPIVACAINE 0.5% VIAL IJ ONE (12:26)
[2021-11-12] MEDS ORDERED: Depo-Medrol 40 MG/ML IM ONE (12:26)
[2021-11-12] MEDS ORDERED: Xylocaine 1% Vial 30 ML PF IJ ONE (12:26)
[2021-11-12] MEDS ORDERED: Lactated Ringers 1,000 ML IV ONE (14:17)
[2021-11-12] MEDS ORDERED: DIPRIVAN 200 MG/20 ML IV ONE ×2 (15:14→15:25)
--- NOTE | 2021-11-12 16:17 | XRAY ---
Indication: Left SI joint RFA. Intraoperative fluoroscopy provided for 46 seconds. 2 digital spot image submitted for interpretation demonstrates 4 posterior needle tips projecting over the left sacrum. Correlate with intraoperative findings/report.
--- NOTE | 2021-11-12 16:38 | XRAY ---
46 seconds of fluoroscopy was used in surgery for a left sacroiliac joint RFA.
== END 2021-11-12 15:50 | disposition home or self-care (01) ==
LOC: SDC-PAIN 12:25
PROVIDERS: ATTEND Psychiatry & Neurology Pain Medicine
DX: M46.1 Sacroiliitis, not elsewhere classified (principal); Z79.899 Other long term (current) drug therapy
CPT/HCPCS: 64625; 72100; 77002; J1030; J2001; J2704

== ENCOUNTER 2021-12-17 13:04 | Day surgery (SDC) | payer OTHER ==
[2021-12-17] MEDS ORDERED: LIDOCAINE HCL 2% 100 MG/5 ML IJ ONE (13:05)
[2021-12-17] MEDS ORDERED: Xylocaine 1% Vial 30 ML PF IJ ONE (13:05)
[2021-12-17] MEDS ORDERED: Decadron 4 MG INJ IV ONE (13:05)
[2021-12-17] MEDS ORDERED: Lactated Ringers 1,000 ML IV ONE (15:01)
[2021-12-17] MEDS ORDERED: DIPRIVAN 200 MG/20 ML IV ONE ×2 (15:02→15:23)
--- NOTE | 2021-12-17 16:40 | XRAY ---
Indication: Right C2-C5 MBB. Intraoperative fluoroscopy provided for 57 seconds. 2 digital spot image submitted for interpretation demonstrates posterior needle tips projecting over the expected C2-C5 nerve roots. Correlate with intraoperative findings/report.
--- NOTE | 2021-12-17 16:43 | XRAY ---
57 seconds of fluoroscopy was used in surgery for a right C2-C5 MBB.
== END 2021-12-17 15:40 | disposition home or self-care (01) ==
LOC: SDC-PAIN 13:04
PROVIDERS: ATTEND Psychiatry & Neurology Pain Medicine
DX: M47.812 Spondylosis without myelopathy or radiculopathy, cervical region (principal); Z79.899 Other long term (current) drug therapy
CPT/HCPCS: 64490; 64491; 64492; 72040; 77002; J1100; J2001; J2704

== ENCOUNTER 2022-01-07 11:31 | Day surgery (SDC) | payer OTHER ==
[2022-01-07] MEDS ORDERED: Decadron 4 MG INJ IV ONE (13:35)
[2022-01-07] MEDS ORDERED: BUPIVACAINE 0.5% VIAL IJ ONE (13:35)
[2022-01-07] MEDS ORDERED: Lactated Ringers 1,000 ML IV ONE (13:50)
[2022-01-07] MEDS ORDERED: Xylocaine-Mpf 2% 5 Ml Vial ONE (14:23)
[2022-01-07] MEDS ORDERED: DIPRIVAN 200 MG/20 ML IV ONE (14:25)
--- NOTE | 2022-01-07 15:13 | XRAY ---
Indication: Right C2-C5 MBB. Intraoperative fluoroscopy provided for 22 seconds. 2 digital spot image submitted for interpretation demonstrates posterior needle tips projecting over the expected right C2-C5 nerve roots. Correlate with intraoperative findings/report.
--- NOTE | 2022-01-07 15:24 | XRAY ---
22 seconds fluoroscopy time in surgery for right C2-C5 MBB.
== END 2022-01-07 14:50 | disposition home or self-care (01) ==
LOC: SDC-PAIN 11:31
PROVIDERS: ATTEND Psychiatry & Neurology Pain Medicine
DX: M47.812 Spondylosis without myelopathy or radiculopathy, cervical region (principal)
CPT/HCPCS: 64490; 64491; 64492; 72040; 77002; J1100; J2704

== ENCOUNTER 2022-01-22 07:58 | Day surgery (SDC) | payer OTHER ==
[2022-01-22] MEDS ORDERED: Decadron 4 MG INJ IV ONE (07:59)
[2022-01-22] MEDS ORDERED: BUPIVACAINE 0.5% VIAL IJ ONE (07:59)
[2022-01-22] MEDS ORDERED: Xylocaine 1% Vial 30 ML PF IJ ONE (07:59)
[2022-01-22] MEDS ORDERED: Lactated Ringers 1,000 ML IV ONE (09:39)
[2022-01-22] MEDS ORDERED: Xylocaine-Mpf 2% 5 Ml Vial ONE (09:58)
[2022-01-22] MEDS ORDERED: DIPRIVAN 200 MG/20 ML IV ONE ×2 (09:58→10:11)
--- NOTE | 2022-01-22 10:57 | XRAY ---
Indication: Right C2-C5 RFA. Intraoperative fluoroscopy provided for 43 seconds. 2 digital spot images submitted for interpretation demonstrate posterior needle tips projecting over the expected right C2-C5 nerve roots. Correlate with intraoperative findings/report.
--- NOTE | 2022-01-22 11:47 | XRAY ---
43 seconds of fluoroscopy was used in surgery for a right C2-C5 RFA.
== END 2022-01-22 10:34 | disposition home or self-care (01) ==
LOC: SDC-PAIN 07:58
PROVIDERS: ATTEND Psychiatry & Neurology Pain Medicine
DX: M47.812 Spondylosis without myelopathy or radiculopathy, cervical region (principal); Z79.899 Other long term (current) drug therapy
CPT/HCPCS: 01939; 64633; 64634; 72040; 77002; J1100; J2001; J2704

== ENCOUNTER 2022-03-11 11:33 | Day surgery (SDC) | payer OTHER ==
[2022-03-11] MEDS ORDERED: Sodium Chloride 0.9(Preservative Free) 10 ML IJ ONE (11:34)
[2022-03-11] MEDS ORDERED: Depo-Medrol 40 MG/ML IM ONE (11:34)
[2022-03-11] MEDS ORDERED: Lactated Ringers 1,000 ML IV ONE (13:41)
[2022-03-11] MEDS ORDERED: DIPRIVAN 200 MG/20 ML IV ONE (13:55)
[2022-03-11] MEDS ORDERED: Xylocaine-Mpf 2% 5 Ml Vial ONE (13:55)
--- NOTE | 2022-03-11 16:35 | XRAY ---
Indication: Right L4-S1 transforaminal AVTAR. Intraoperative fluoroscopy provided for 28 seconds. 5 digital spot image submitted for interpretation demonstrates posterior needle tips projecting over the expected right L4 and L5 nerve roots. Small amount of contrast injected for needle tip placement. Correlate with intraoperative findings/report.
--- NOTE | 2022-03-11 17:07 | XRAY ---
28 seconds of fluoroscopy right L4-S1 transforaminal AVTAR.
== END 2022-03-11 14:20 | disposition home or self-care (01) ==
LOC: SDC-PAIN 11:33
PROVIDERS: ATTEND Psychiatry & Neurology Pain Medicine
DX: M54.16 Radiculopathy, lumbar region (principal); Z79.899 Other long term (current) drug therapy
CPT/HCPCS: 64483; 64484; 72100; 77003; J1030; J2704; Q9966

== ENCOUNTER 2022-03-25 15:45 | Day surgery (SDC) | payer OTHER ==
[2022-03-25] MEDS ORDERED: LIDOCAINE HCL 2% 100 MG/5 ML IJ ONE (15:46)
[2022-03-25] MEDS ORDERED: Decadron 4 MG INJ IV ONE (15:46)
[2022-03-25] MEDS ORDERED: Lactated Ringers 1,000 ML IV ONE (16:37)
[2022-03-25] MEDS ORDERED: DIPRIVAN 200 MG/20 ML IV ONE (17:28)
[2022-03-25] MEDS ORDERED: Xylocaine-Mpf 2% 5 Ml Vial ONE (17:44)
--- NOTE | 2022-03-25 19:44 | XRAY ---
Indication: Left C2-C4 MBB. Intraoperative fluoroscopy provided for 28 seconds. 2 digital spot image submitted for interpretation demonstrates posterior needle tips projecting over the expected left C2-C3 nerve roots. Correlate with intraoperative findings/report.
--- NOTE | 2022-03-26 08:55 | XRAY ---
28 seconds fluoroscopy in surgery for left C2-C4 MBB.
== END 2022-03-25 18:11 | disposition home or self-care (01) ==
LOC: SDC-PAIN 15:45
PROVIDERS: ATTEND Psychiatry & Neurology Pain Medicine
DX: M47.812 Spondylosis without myelopathy or radiculopathy, cervical region (principal); Z79.899 Other long term (current) drug therapy
CPT/HCPCS: 64490; 64491; 72040; 77002; J1100; J2704

== ENCOUNTER 2022-04-15 13:43 | Day surgery (SDC) | payer OTHER ==
[2022-04-15] MEDS ORDERED: Marcaine Mpf 0.5% Vial 30 Ml IJ ONE (13:44)
[2022-04-15] MEDS ORDERED: Lactated Ringers 1,000 ML IV ONE (13:44)
[2022-04-15] MEDS ORDERED: Decadron 4 MG INJ IV ONE (13:44)
[2022-04-15] MEDS ORDERED: DIPRIVAN 200 MG/20 ML IV ONE (16:48)
[2022-04-15] MEDS ORDERED: Xylocaine-Mpf 2% 5 Ml Vial ONE (16:51)
--- NOTE | 2022-04-15 17:43 | XRAY ---
Indication: Left C2-C5 MBB. Intraoperative fluoroscopy provided for 43 seconds. 2 digital spot image submitted for interpretation demonstrates posterior needle tips projecting over the expected left C2-C5 nerve roots. Correlate with intraoperative findings/report.
--- NOTE | 2022-04-16 09:14 | XRAY ---
43 seconds of fluoroscopy was used in surgery for a left C2-C5 MBB.
== END 2022-04-15 17:25 | disposition home or self-care (01) ==
LOC: SDC-PAIN 13:43
PROVIDERS: ATTEND Psychiatry & Neurology Pain Medicine
DX: M47.812 Spondylosis without myelopathy or radiculopathy, cervical region (principal); Z79.899 Other long term (current) drug therapy
CPT/HCPCS: 64490; 64491; 64492; 72040; 77002; J1100; J2704

== ENCOUNTER 2022-05-20 10:55 | Day surgery (SDC) | payer OTHER ==
[2022-05-20] MEDS ORDERED: Marcaine Mpf 0.5% Vial 30 Ml IJ ONE (10:56)
[2022-05-20] MEDS ORDERED: XYLOCAINE-MPF 1% 5ML SDV IJ ONE (10:56)
[2022-05-20] MEDS ORDERED: Decadron 4 MG INJ IV ONE (10:56)
[2022-05-20] MEDS ORDERED: DIPRIVAN 200 MG/20 ML IV ONE (13:37)
--- NOTE | 2022-05-20 14:25 | XRAY ---
Indication: Left C2-C5 RFA. Intraoperative fluoroscopy provided for 39 seconds. 3 digital spot images submitted for interpretation demonstrates posterior needle tips projecting over the expected left C2-C5 nerve roots. Correlate with intraoperative findings/report.
--- NOTE | 2022-05-20 14:49 | XRAY ---
39 seconds fluoroscopy time in surgery for left C2-C5 RFA.
== END 2022-05-20 14:09 | disposition home or self-care (01) ==
LOC: SDC-PAIN 10:55
PROVIDERS: ATTEND Psychiatry & Neurology Pain Medicine
DX: M47.812 Spondylosis without myelopathy or radiculopathy, cervical region (principal); Z79.899 Other long term (current) drug therapy
CPT/HCPCS: 01939; 64633; 64634; 72040; 77002; J1100; J2704

== ENCOUNTER 2022-09-30 08:14 | Day surgery (SDC) | payer OTHER ==
[2022-09-30] MEDS ORDERED: Depo-Medrol 40 MG/ML IM ONE (08:15)
[2022-09-30] MEDS ORDERED: BUPIVACAINE 0.5% VIAL IJ ONE (08:15)
[2022-09-30] MEDS ORDERED: DIPRIVAN 200 MG/20 ML IV ONE (09:33)
[2022-09-30] MEDS ORDERED: Xylocaine-Mpf 2% 5 Ml Vial ONE (09:37)
[2022-09-30] MEDS ORDERED: Lactated Ringers 1,000 ML IV ONE (10:28)
--- NOTE | 2022-09-30 19:51 | XRAY ---
Indication: Right shoulder and subacromial bursa injection. Intraoperative fluoroscopy provided for 19 seconds. 2 digital spot image submitted for interpretation demonstrates needle tip projecting over the right glenohumeral joint superiorly. Second needle tip subacromial with small amount of contrast injected for needle tip placement. Correlate with intraoperative findings/report.
--- NOTE | 2022-09-30 20:00 | XRAY ---
19 seconds fluoroscopy time in surgery for intra-articular and subacromial injections of the right shoulder.
== END 2022-09-30 10:05 | disposition home or self-care (01) ==
LOC: SDC-PAIN 08:14
PROVIDERS: ATTEND Psychiatry & Neurology Pain Medicine
DX: M19.011 Primary osteoarthritis, right shoulder (principal); M75.51 Bursitis of right shoulder; Z79.899 Other long term (current) drug therapy
CPT/HCPCS: 20610; 73030; 77002; J1030; J2704; Q9966

== ENCOUNTER 2023-01-13 07:41 | Day surgery (SDC) | payer OTHER ==
[2023-01-13] MEDS ORDERED: LIDOCAINE HCL 1% 50 MG/5 ML VL PF IJ ONE (07:42)
[2023-01-13] MEDS ORDERED: Depo-Medrol 40 MG/ML IM ONE (07:42)
[2023-01-13] MEDS ORDERED: BUPIVACAINE 0.5% VIAL IJ ONE (07:42)
[2023-01-13] MEDS ORDERED: DIPRIVAN 200 MG/20 ML IV ONE (08:57)
--- NOTE | 2023-01-13 10:06 | XRAY ---
Indication: Right SI joint RFA. Intraoperative fluoroscopy provided for 31 seconds. 2 digital spot images submitted for interpretation demonstrates 4 posterior needle tips projecting just medial to the right SI joint. Correlate with intraoperative findings/report.
--- NOTE | 2023-01-13 10:24 | XRAY ---
31 seconds of fluoroscopy was used in surgery for a right sacroiliac joint injection.
[2023-01-13] MEDS ORDERED: Lactated Ringers 1,000 ML IV ONE (10:35)
== END 2023-01-13 09:28 | disposition left against medical advice (07) ==
LOC: SDC-PAIN 07:41
PROVIDERS: ATTEND Psychiatry & Neurology Pain Medicine
DX: M47.816 Spondylosis without myelopathy or radiculopathy, lumbar region (principal); Z79.899 Other long term (current) drug therapy
CPT/HCPCS: 64625; 72170; 77002; 82947; J1030; J2001; J2704

== ENCOUNTER 2023-03-17 08:39 | Day surgery (SDC) | payer OTHER ==
[2023-03-17] MEDS ORDERED: BUPIVACAINE 0.5% VIAL IJ ONE (08:40)
[2023-03-17] MEDS ORDERED: LIDOCAINE HCL 1% 50 MG/5 ML VL PF IJ ONE (08:40)
[2023-03-17] MEDS ORDERED: Depo-Medrol 40 MG/ML IM ONE (08:40)
[2023-03-17] MEDS ORDERED: DIPRIVAN 200 MG/20 ML IV ONE (09:49)
[2023-03-17] MEDS ORDERED: Xylocaine-Mpf 2% 5 Ml Vial ONE (09:51)
[2023-03-17] MEDS ORDERED: APRESOLINE 20 MG/ML INJ ONE (09:58)
--- NOTE | 2023-03-17 13:50 | XRAY ---
Indication: Right L4-S1 RFA. Intraoperative fluoroscopy provided for 18 seconds. 4 digital spot image submitted for interpretation demonstrates posterior needle tips projecting over the expected right L4-S1 nerve roots. Correlate with intraoperative findings/report.
[2023-03-17] MEDS ORDERED: Lactated Ringers 1,000 ML IV ONE (14:19)
--- NOTE | 2023-03-17 15:58 | XRAY ---
18 seconds of fluoroscopy was used in surgery for a right L4-S1 RFA.
== END 2023-03-17 10:03 | disposition home or self-care (01) ==
LOC: SDC-PAIN 08:39
PROVIDERS: ATTEND Psychiatry & Neurology Pain Medicine
DX: M47.816 Spondylosis without myelopathy or radiculopathy, lumbar region (principal); Z79.899 Other long term (current) drug therapy
CPT/HCPCS: 64635; 64636; 72100; 77002; 82947; J0360; J1030; J2001; J2704

== ENCOUNTER 2023-03-24 15:06 | Day surgery (SDC) | payer OTHER ==
[2023-03-24] MEDS ORDERED: BUPIVACAINE 0.5% VIAL IJ ONE (15:07)
[2023-03-24] MEDS ORDERED: Depo-Medrol 40 MG/ML IM ONE (15:07)
[2023-03-24] MEDS ORDERED: LIDOCAINE HCL 1% 50 MG/5 ML VL PF IJ ONE (15:07)
[2023-03-24] MEDS ORDERED: DIPRIVAN 200 MG/20 ML IV ONE (16:40)
[2023-03-24] MEDS ORDERED: Xylocaine-Mpf 2% 5 Ml Vial ONE (16:56)
[2023-03-24] MEDS ORDERED: Lactated Ringers 1,000 ML IV ONE ×2 (17:44→17:55)
--- NOTE | 2023-03-24 22:00 | XRAY ---
Indication: Left L4-S1 RFA. Intraoperative fluoroscopy provided for 27 seconds. 4 digital spot image submitted for interpretation demonstrates posterior needle tips projecting over the expected left L4-S1 nerve roots. Correlate with intraoperative findings/report.
== END 2023-03-24 17:30 | disposition home or self-care (01) ==
LOC: SDC-PAIN 15:06
PROVIDERS: ATTEND Psychiatry & Neurology Pain Medicine
DX: M47.817 Spondylosis without myelopathy or radiculopathy, lumbosacral region (principal); Z79.899 Other long term (current) drug therapy
CPT/HCPCS: 64635; 64636; 72100; 77002; 82947; J1030; J2001; J2704

== ENCOUNTER 2023-05-05 07:44 | Day surgery (SDC) | payer OTHER ==
[2023-05-05] MEDS ORDERED: LIDOCAINE HCL 1% 50 MG/5 ML VL PF IJ ONE (07:45)
[2023-05-05] MEDS ORDERED: Depo-Medrol 40 MG/ML IM ONE (07:45)
[2023-05-05] MEDS ORDERED: BUPIVACAINE 0.5% VIAL IJ ONE (07:45)
--- NOTE | 2023-05-05 09:55 | XRAY ---
Indication: Left knee injection. Intraoperative fluoroscopy provided for 9 seconds. Single digital spot image submitted for interpretation demonstrates needle tip projecting over the left femur intercondylar notch. Small amount of contrast injected for needle tip placement. Correlate with intraoperative findings/report.
--- NOTE | 2023-05-05 09:55 | XRAY ---
Indication: Right knee injection. Intraoperative fluoroscopy provided for 9 seconds. Single digital spot image submitted for interpretation demonstrates needle tip projecting over the right femur intercondylar notch. Small amount of contrast injected for needle tip placement. Correlate with intraoperative findings/report.
--- NOTE | 2023-05-05 10:46 | XRAY ---
9 seconds of fluoroscopy was used in surgery for a right intra-articular knee injection.
--- NOTE | 2023-05-05 10:46 | XRAY ---
9 seconds of fluoroscopy was used in surgery for a left intra-articular knee injection.
== END 2023-05-05 09:03 | disposition home or self-care (01) ==
LOC: SDC-PAIN 07:44
PROVIDERS: ATTEND Psychiatry & Neurology Pain Medicine
DX: M17.0 Bilateral primary osteoarthritis of knee (principal); Z79.899 Other long term (current) drug therapy
CPT/HCPCS: 20610; 73560; 77002; J1030; J2001; Q9966

== ENCOUNTER 2023-09-01 07:19 | Day surgery (SDC) | payer OTHER ==
[2023-09-01] MEDS ORDERED: LIDOCAINE HCL 1% 50 MG/5 ML VL PF IJ ONE (07:20)
[2023-09-01] MEDS ORDERED: Depo-Medrol 40 MG/ML IM ONE (07:20)
[2023-09-01] MEDS ORDERED: BUPIVACAINE 0.5% VIAL IJ ONE (07:20)
[2023-09-01] MEDS ORDERED: DIPRIVAN 200 MG/20 ML IV ONE (08:35)
[2023-09-01] MEDS ORDERED: Versed 2 MG/2 ML Injection ONE (08:35)
[2023-09-01] MEDS ORDERED: Xylocaine-Mpf 2% 5 Ml Vial ONE (08:40)
[2023-09-01] MEDS ORDERED: Lactated Ringers 1,000 ML IV ONE (09:41)
--- NOTE | 2023-09-01 10:01 | XRAY ---
Indication: Right shoulder and subacromial bursa injection. Intraoperative fluoroscopy provided for 17 seconds. 3 digital spot images submitted for interpretation demonstrates needle tip projecting over the right glenohumeral joint superiorly. Second needle tip subacromial. Small amount of contrast injected for both needle tip placement. Correlate with intraoperative findings/report.
--- NOTE | 2023-09-01 12:12 | XRAY ---
17 seconds of fluoroscopy was used in surgery for a right intra-articular shoulder and subacromial bursa injection.
== END 2023-09-01 09:12 | disposition home or self-care (01) ==
LOC: SDC-PAIN 07:19
PROVIDERS: ATTEND Psychiatry & Neurology Pain Medicine
DX: M19.011 Primary osteoarthritis, right shoulder (principal); M75.51 Bursitis of right shoulder; M75.21 Bicipital tendinitis, right shoulder; R73.03 Prediabetes
CPT/HCPCS: 20550; 20553; 20610; 73030; 77002; 82947; J1030; J2001; J2250; J2704; Q9966

== ENCOUNTER 2023-10-06 07:26 | Day surgery (SDC) | payer OTHER ==
[2023-10-06] MEDS ORDERED: XYLOCAINE-MPF 1% 5ML SDV IJ ONE (07:27)
[2023-10-06] MEDS ORDERED: BUPIVACAINE 0.5% VIAL IJ ONE (07:27)
[2023-10-06] MEDS ORDERED: Depo-Medrol 40 MG/ML IM ONE (07:27)
[2023-10-06] MEDS ORDERED: Xylocaine-Mpf 2% 5 Ml Vial ONE (08:48)
[2023-10-06] MEDS ORDERED: DIPRIVAN 200 MG/20 ML IV ONE ×2 (08:48→08:59)
[2023-10-06] MEDS ORDERED: Lactated Ringers 1,000 ML IV ONE (09:28)
--- NOTE | 2023-10-06 10:04 | XRAY ---
Indication: Left SI RFA Intraoperative fluoroscopy provided for 22 seconds. 2 digital spot image submitted for interpretation demonstrates 4 consecutive posterior needle tips projecting medial to left SI joint. Correlate with intraoperative findings/report.
--- NOTE | 2023-10-06 10:04 | XRAY ---
22 seconds of fluoroscopy was used in surgery for a left sacroiliac joint injection.
== END 2023-10-06 09:31 | disposition home or self-care (01) ==
LOC: SDC-PAIN 07:26
PROVIDERS: ATTEND Psychiatry & Neurology Pain Medicine
DX: M46.1 Sacroiliitis, not elsewhere classified (principal); R73.03 Prediabetes
CPT/HCPCS: 64625; 72170; 77002; 82947; J1030; J2704

== ENCOUNTER 2023-11-10 09:24 | Day surgery (SDC) | payer MEDICARE, OTHER ==
[2023-11-10] MEDS ORDERED: Depo-Medrol 40 MG/ML IM ONE (09:25)
[2023-11-10] MEDS ORDERED: BUPIVACAINE 0.5% VIAL IJ ONE (09:25)
[2023-11-10] MEDS ORDERED: DIPRIVAN 200 MG/20 ML IV ONE (11:35)
[2023-11-10] MEDS ORDERED: Xylocaine-Mpf 2% 5 Ml Vial ONE (11:44)
[2023-11-10] MEDS ORDERED: Lactated Ringers 1,000 ML IV ONE (14:08)
--- NOTE | 2023-11-10 14:43 | XRAY ---
Indication: Right hip and greater trochanter bursa injection. Intraoperative fluoroscopy provided for 18 seconds. 2 digital spot image submitted for interpretation demonstrates needle tip projecting lateral to right femur neck. Second needle tip lateral to greater trochanter. Small amount of contrast injected for needle tip placement. Correlate with intraoperative findings/report.
--- NOTE | 2023-11-10 14:46 | XRAY ---
18 seconds of fluoroscopy was used in surgery for a right intra-articular hip and right greater trochanteric bursa injection.
== END 2023-11-10 12:15 | disposition home or self-care (01) ==
LOC: SDC-PAIN 09:24
PROVIDERS: ATTEND Psychiatry & Neurology Pain Medicine
DX: M16.11 Unilateral primary osteoarthritis, right hip (principal); M70.61 Trochanteric bursitis, right hip
CPT/HCPCS: 20610; 73502; 77002; J1030; J2704; Q9966

== ENCOUNTER 2024-01-17 19:59 | Emergency (ER) | payer MEDICARE ==
--- NOTE | 2024-01-17 20:03 | ERPHSYRPT ---
- History of Present Illness Time Seen by Provider: 01/17/24 20:03 Source: patient, family Exam Limitations: no limitations Allergies/Adverse Reactions: amoxicillin [From Augmentin] Allergy (Verified 06/11/21 15:02) atorvastatin [From Lipitor] Allergy (Verified 06/11/21 15:02) ciprofloxacin [From Cipro] Allergy (Verified 06/11/21 15:02) clavulanic acid [From Augmentin] Allergy (Verified 06/11/21 15:02) cortisone Allergy (Verified 06/11/21 15:02) rosuvastatin [From Crestor] Allergy (Verified 06/11/21 15:02) Sulfa (Sulfonamide Antibiotics) Allergy (Verified 06/11/21 15:02) Tetanus Vaccines and Toxoid Allergy (Verified 06/11/21 15:02) ibuprofen Adverse Reaction (Verified 06/11/21 15:02) Home Medications: Albuterol Sulfate [Albuterol Sulfate Hfa] 1 inh PO UD 06/11/21 [History] Calcium Citrate/Vitamin D3 [Calcium Citrate - Vit D Tablet] 2 tab PO BID 06/11/21 [History] Fexofenadine HCl [Allergy Relief] 180 mg PO DAILY 06/11/21 [History] Gabapentin 800 mg PO QID 06/11/21 [History] Hydrocodone/Acetaminophen [Hydrocodone-Acetamin 7.5-325] 1 tab PO Q6H 06/11/21 [History] PANTOPRAZOLE 40 mg Tablet [Protonix 40MG Tablet] 40 mg PO BID 06/11/21 [History] Simvastatin 40 mg PO DAILY 06/11/21 [History] Ustekinumab [Stelara] 90 mg SQ UD 06/11/21 [History] guaiFENesin [Guaifenesin] 1,200 mg PO BID 06/11/21 [History] Hx Tetanus, Diphtheria Vaccination/Date Given: Yes Hx Influenza Vaccination/Date Given: No Hx Pneumococcal Vaccination/Date Given: No Travel Risk - Vaccine Status Have you recieved a Covid-19 vaccination: Yes [employer]: Unknown - Vaccination Dates Date of 2cond Vaccination (if applicable): 01/02/2021 Dates if Unknown: 11/01/00 - Past Medical History Pertinent Past Medical History: Yes Neurological History: Peripheral Neuropathy, Other ENT History: No Pertinent History Cardiac History: No Pertinent History Respiratory History: Bronchitis Endocrine Medical History: No Pertinent History Musculoskeletal History: Degenerative Disk Disease, Fibromyalgia, Osteoarthritis GI Medical History: No Pertinent History History: No Pertinent History Psycho-Social History: No Pertinent History Female Reproductive Disorders: No Pertinent History Other Medical History: Carpal tunnel in the R UE and L UE but worse in the L. Psoriatic OA, Degenerative OA - Past Surgical History Past Surgical History: Yes Neuro Surgical History: No Pertinent History Cardiac: No Pertinent History Respiratory: No Pertinent History Gastrointestinal: No Pertinent History Genitourinary: No Pertinent History Musculoskeletal: Orthopedic Surgery Female Surgical History: Tubal Ligation Other Surgical History: Right shoulder X 2, Nasal surgery X 8 - Social History Smoking Status: Current every day smoker How long have you smoked: years Exposure to second hand smoke: Yes Drug Use: none Patient Lives Alone: No - Departure Referrals: NELIA PORTILLO MD [Primary Care Provider] - Follow up/PCP as directed
== END 2024-01-17 20:23 | disposition left against medical advice (07) ==
LOC: ED 19:59
DX: Z53.21 Procedure and treatment not carried out due to patient leaving prior to being seen by health care provider (principal)

== ENCOUNTER 2024-03-01 13:35 | Day surgery (SDC) | payer MEDICARE, OTHER ==
[2024-03-01] MEDS ORDERED: BUPIVACAINE 0.5% VIAL IJ ONE (13:36)
[2024-03-01] MEDS ORDERED: XYLOCAINE-MPF 1% 5ML SDV IJ ONE (13:36)
[2024-03-01] MEDS ORDERED: Decadron 4 MG INJ IV ONE (13:36)
[2024-03-01] MEDS ORDERED: Xylocaine-Mpf 2% 5 Ml Vial ONE (15:06)
[2024-03-01] MEDS ORDERED: DIPRIVAN 200 MG/20 ML IV ONE (15:06)
[2024-03-01] MEDS ORDERED: Lactated Ringers 1,000 ML IV ONE (15:52)
--- NOTE | 2024-03-01 16:48 | XRAY ---
Indication: Right C2-C5 RFA. Intraoperative fluoroscopy provided for 26 seconds. 5 digital spot image submitted for interpretation demonstrates posterior needle tips projecting over expected right C2-C5 nerve roots. Correlate with intraoperative findings/report.
--- NOTE | 2024-03-02 14:46 | XRAY ---
26 seconds of fluoroscopy was used in surgery for a right C2-C5 RFA.
== END 2024-03-01 15:40 | disposition home or self-care (01) ==
LOC: SDC-PAIN 13:35
PROVIDERS: ATTEND Psychiatry & Neurology Pain Medicine
DX: M47.812 Spondylosis without myelopathy or radiculopathy, cervical region (principal)
CPT/HCPCS: 64633; 64634; 72040; 77002; J1100; J2704

== ENCOUNTER 2024-03-08 10:20 | Day surgery (SDC) | payer MEDICARE ==
[2024-03-08] MEDS ORDERED: BUPIVACAINE 0.5% VIAL IJ ONE (10:21)
[2024-03-08] MEDS ORDERED: XYLOCAINE-MPF 1% 5ML SDV IJ ONE (10:21)
[2024-03-08] MEDS ORDERED: Decadron 4 MG INJ IV ONE (10:21)
[2024-03-08] MEDS ORDERED: Lactated Ringers 1,000 ML IV ONE (12:01)
[2024-03-08] MEDS ORDERED: DIPRIVAN 200 MG/20 ML IV ONE (12:24)
[2024-03-08] MEDS ORDERED: Xylocaine-Mpf 2% 5 Ml Vial ONE (12:26)
--- NOTE | 2024-03-08 13:27 | XRAY ---
Indication: Left C2-C5 RFA. Intraoperative fluoroscopy provided for 18 seconds. 2 digital spot image submitted for interpretation demonstrates posterior needle tips projecting over the expected left C2-C5 nerve roots. Correlate with intraoperative findings/report.
--- NOTE | 2024-03-08 15:00 | XRAY ---
18 seconds of fluoroscopy was used in surgery for a left C2-C5 RFA.
== END 2024-03-08 12:46 | disposition home or self-care (01) ==
LOC: SDC-PAIN 10:20
PROVIDERS: ATTEND Psychiatry & Neurology Pain Medicine
DX: M47.812 Spondylosis without myelopathy or radiculopathy, cervical region (principal)
CPT/HCPCS: 64633; 64634; 72040; 77002; J1100; J2704

== ENCOUNTER 2024-10-04 12:18 | Day surgery (SDC) | payer OTHER ==
[2024-10-04] MEDS ORDERED: Depo-Medrol 40 MG/ML IM ONE (12:19)
[2024-10-04] MEDS ORDERED: BUPIVACAINE 0.5% VIAL IJ ONE (12:19)
[2024-10-04] MEDS ORDERED: DIPRIVAN 200 MG/20 ML IV ONE (14:19)
[2024-10-04] MEDS ORDERED: Xylocaine-Mpf 2% 5 Ml Vial ONE (14:21)
--- NOTE | 2024-10-04 19:04 | XRAY ---
Indication: Right shoulder and subacromial bursa injection. Intraoperative fluoroscopy provided for 13 seconds. 2 digital spot image submitted for interpretation demonstrates needle tips projecting over right glenohumeral joint superiorly and subacromial. Small amount of contrast injected for all needle tip placement. Correlate with intraoperative findings/report.
--- NOTE | 2024-10-04 19:06 | XRAY ---
Indication: Left knee injection. Intraoperative fluoroscopy provided for 5 seconds. Single digital spot image submitted for interpretation demonstrates needle tip projecting over left femur intercondylar notch. Small amount of contrast injected for all needle tip placement. Correlate with intraoperative findings/report.
--- NOTE | 2024-10-04 19:23 | XRAY ---
5 seconds of fluoroscopy was used in surgery for a left intra-articular knee and pes anserine bursa injection.
--- NOTE | 2024-10-04 19:23 | XRAY ---
13 seconds of fluoroscopy was used in surgery for a right intra-articular shoulder and subacromial bursa injection.
== END 2024-10-04 14:45 | disposition home or self-care (01) ==
LOC: SDC-PAIN 12:18
PROVIDERS: ATTEND Psychiatry & Neurology Pain Medicine
DX: M17.12 Unilateral primary osteoarthritis, left knee (principal); M70.52 Other bursitis of knee, left knee; M75.51 Bursitis of right shoulder
CPT/HCPCS: 20610; 73030; 73560; 77002; J2704; Q9966

== ENCOUNTER 2024-11-09 09:31 | Day surgery (SDC) | payer OTHER ==
[2024-11-09] MEDS ORDERED: BUPIVACAINE 0.5% VIAL IJ ONE (09:32)
[2024-11-09] MEDS ORDERED: methylPREDNISolone acetate IM ONE (09:32)
[2024-11-09] MEDS ORDERED: propofoL IV ONE ×2 (11:02→11:13)
[2024-11-09] MEDS ORDERED: Xylocaine-Mpf 2% 5 Ml Vial ONE (11:05)
--- NOTE | 2024-11-09 11:49 | XRAY ---
Indication: Bilateral hip injection. Intraoperative fluoroscopy provided for 35 seconds. 2 digital spot image submitted for interpretation demonstrates needle tips projecting lateral to the left and right femur necks. Small amount of contrast injected for both needle tip placement.. Correlate with intraoperative findings/report.
--- NOTE | 2024-11-09 12:17 | XRAY ---
35 seconds of fluoroscopy was used in surgery for a bilateral intra-articular hip injection.
== END 2024-11-09 11:34 | disposition home or self-care (01) ==
LOC: SDC-PAIN 09:31
PROVIDERS: ATTEND Psychiatry & Neurology Pain Medicine
DX: M16.0 Bilateral primary osteoarthritis of hip (principal)
CPT/HCPCS: 20610; 73521; 77002; 82947; J1010; J2704; Q9966

== ENCOUNTER 2025-01-31 09:47 | Day surgery (SDC) | payer OTHER ==
[2025-01-31] MEDS ORDERED: dexAMETHasone sodium phosphate IJ ONE (09:48)
[2025-01-31] MEDS ORDERED: Sodium Chloride 0.9(Preservative Free) 10 ML IJ ONE (09:48)
[2025-01-31] MEDS ORDERED: propofoL IV ONE (10:31)
--- NOTE | 2025-01-31 11:59 | XRAY ---
Indication: Left L4-S1 transforaminal AVTAR. Intraoperative fluoroscopy provided for 56 seconds. 5 digital spot image submitted for interpretation demonstrates posterior needle tips projecting over expected left L4 and L5 nerve roots. Small amount of contrast injected for needle tip placement. Correlate with intraoperative findings/report.
--- NOTE | 2025-01-31 12:58 | XRAY ---
56 seconds of fluoroscopy was used in surgery for a left L4-S1 transforaminal AVTAR.
== END 2025-01-31 11:04 | disposition home or self-care (01) ==
LOC: SDC-PAIN 09:47
PROVIDERS: ATTEND Psychiatry & Neurology Pain Medicine
DX: M54.16 Radiculopathy, lumbar region (principal)
CPT/HCPCS: 64483; 64484; 72100; J1100; J2704; Q9966

== ENCOUNTER 2025-02-21 08:31 | Day surgery (SDC) | payer OTHER ==
[2025-02-21] MEDS ORDERED: Depo-Medrol 40 MG/ML IM ONE (08:32)
[2025-02-21] MEDS ORDERED: BUPIVACAINE 0.5% VIAL IJ ONE (08:32)
[2025-02-21] MEDS ORDERED: Xylocaine-Mpf 2% 5 Ml Vial ONE (09:46)
[2025-02-21] MEDS ORDERED: propofoL IV ONE (09:46)
[2025-02-21] MEDS ORDERED: Lactated Ringers 1,000 ML IV ONE (10:21)
--- NOTE | 2025-02-21 11:40 | XRAY ---
31 seconds of fluoroscopy used in surgery for a right intra-articular hip injection and right greater trochanteric bursa injection.
--- NOTE | 2025-02-21 11:43 | XRAY ---
Indication: Right hip and greater trochanter bursa injection. Intraoperative fluoroscopy provided for 31 seconds. 2 digital spot images submitted for interpretation demonstrates needle tips projecting lateral to right femur neck and greater trochanter. Small amount of contrast injected for both needle tip placement. Correlate with intraoperative findings/report.
== END 2025-02-21 10:15 | disposition home or self-care (01) ==
LOC: SDC-PAIN 08:31
PROVIDERS: ATTEND Psychiatry & Neurology Pain Medicine
DX: M16.11 Unilateral primary osteoarthritis, right hip (principal); M70.61 Trochanteric bursitis, right hip
CPT/HCPCS: 20610; 73502; 77002; J2704; Q9966

== ENCOUNTER 2025-07-25 09:30 | Day surgery (SDC) | payer OTHER ==
[2025-07-25] MEDS ORDERED: BUPIVACAINE 0.5% VIAL IJ ONE (09:31)
[2025-07-25] MEDS ORDERED: methylPREDNISolone acetate IM ONE (09:31)
[2025-07-25] MEDS ORDERED: propofoL IV ONE (10:59)
[2025-07-25] MEDS ORDERED: Xylocaine-Mpf 2% 5 Ml Vial ONE (11:00)
[2025-07-25] MEDS ORDERED: Lactated Ringers 1,000 ML IV ONE (12:40)
--- NOTE | 2025-07-25 12:56 | XRAY ---
Indication: Bilateral SI joint injection. Intraoperative fluoroscopy provided for 25 seconds. digital spot images submitted for interpretation demonstrates posterior needle tips projecting over left and right SI joint. Small amount of contrast injected for needle tip placement. Correlate with intraoperative findings/report.
--- NOTE | 2025-07-25 12:58 | XRAY ---
25 seconds of fluoroscopy was used in surgery for a bilateral sacroiliac joint injection.
== END 2025-07-25 11:25 | disposition home or self-care (01) ==
LOC: SDC-PAIN 09:30
PROVIDERS: ATTEND Psychiatry & Neurology Pain Medicine
DX: M46.1 Sacroiliitis, not elsewhere classified (principal)

== ENCOUNTER 2025-08-22 07:13 | Day surgery (SDC) | payer OTHER ==
[2025-08-22] MEDS ORDERED: BUPIVACAINE 0.5% VIAL IJ ONE (07:14)
[2025-08-22] MEDS ORDERED: methylPREDNISolone acetate IM ONE (07:14)
[2025-08-22] MEDS ORDERED: Xylocaine-Mpf 2% 5 Ml Vial ONE (08:16)
[2025-08-22] MEDS ORDERED: propofoL IV ONE (08:16)
[2025-08-22] MEDS ORDERED: Lactated Ringers 1,000 ML IV ONE (08:29)
--- NOTE | 2025-08-22 12:00 | XRAY ---
Indication: Bilateral hip injection. Intraoperative fluoroscopy provided for 24 seconds. 2 digital spot images submitted for interpretation demonstrates needle tips projecting lateral to left and right femur necks. Small amount of contrast injected for both needle tip placement. Correlate with intraoperative findings/report.
--- NOTE | 2025-08-22 12:33 | XRAY ---
24 seconds of fluoroscopy was used in surgery for a bilateral intra-articular hip injection.
== END 2025-08-22 08:45 | disposition home or self-care (01) ==
LOC: SDC-PAIN 07:13
PROVIDERS: ATTEND Psychiatry & Neurology Pain Medicine
DX: M16.0 Bilateral primary osteoarthritis of hip (principal)